=== PATIENT | female | born 1935 | race Hispanic/Latino ===

== ENCOUNTER 2016-11-06 08:57 | Inpatient (IN) | payer MEDICARE, BC ==
[2016-11-06 08:57] VITALS: PULSE 89
[2016-11-06 09:09] VITALS: BMI 17.9
--- NOTE | 2016-11-06 09:23 | ED PDOC ---
Arrival/HPI - General Chief Complaint: Shortness Of Breath Time Seen by Provider: 11/06/16 09:23 Historian: Patient - History of Present Illness Narrative History of Present Illness (Text): 11/06/16 09:10 A 80 year old female, whose past medical history includes cardiac arrhythmia, CHF, hypertension, and pacemaker, presents to the emergency department complaining of shortness of breath that developed overnight. Patient notes an associated productive cough, generalized weakness, and worsening shortness of breath when going up the stairs. She denies any fever, chills, chest pain, abdominal pain, nausea, vomiting, or any other complaints at this time. PMD: Dr. Joshi Cover Operator: Dr. Mabry Time/Duration: Other (8-12 hours) Symptom Onset: Sudden Symptom Course: Unchanged Quality: Other Activities at Onset: Rest Context: Home Past Medical History - Provider Review Nursing Documentation Reviewed: Yes - Infectious Disease Hx of Infectious Diseases: None - Cardiac Hx Cardiac Disorders: Yes Hx Congestive Heart Failure: Yes (06/2015) Hx Hypertension: Yes - Pulmonary Hx Respiratory Disorders: Yes Hx Pneumonia: Yes - Neurological Hx Neurological Disorder: Yes - HEENT Hx HEENT Disorder: Yes Hx Cataracts: Yes - Renal Hx Renal Disorder: No - Endocrine/Metabolic Hx Endocrine Disorders: No - Hematological/Oncological Hx Blood Transfusions: No Hx Blood Transfusion Reaction: No - Integumentary Hx Dermatological Disorder: No - Musculoskeletal/Rheumatological Hx Musculoskeletal Disorders: Yes Hx Back Pain: Yes Hx Degenerative Joint Disease: Yes (BACK SX) Hx Falls: Yes Hx Unsteady Gait: Yes (cane/walker H/O) - Gastrointestinal Hx Gastrointestinal Disorders: No - Genitourinary/Gynecological Hx Genitourinary Disorders: No - Psychiatric Hx Psychophysiologic Disorder: No Hx Substance Use: No - Surgical History Other/Comment: kyphoplasty - Anesthesia Hx Anesthesia Reactions: No Hx Malignant Hyperthermia: No - Suicidal Assessment Feels Threatened In Home Enviroment: No Family/Social History - Physician Review Nursing Documentation Reviewed: Yes Family/Social History: Unknown Family HX Smoking Status: Never Smoked Hx Alcohol Use: Yes (WINE OCCASIONALLY) Hx Substance Use: No Allergies/Home Meds Allergies/Adverse Reactions: Allergies cholecalciferol (vitamin D3) [From Vitamin D3] Allergy (Verified 11/06/16 10:35) SWELLING Home Medications: Home Meds Medication Instructions Recorded Confirmed Amiodarone 200 mg PO DAILY 01/01/15 11/06/16 Carvedilol 3.125 mg PO BID 01/01/15 11/06/16 Furosemide [Lasix] 40 mg PO DAILY 06/30/16 11/06/16 Aspirin [[place] Aspirin] 81 mg PO DAILY 11/06/16 11/06/16 Losartan Potassium 25 mg PO BID 11/06/16 11/06/16 Omeprazole 20 mg PO DAILY 11/06/16 11/06/16 Spironolactone [Aldactone] 25 mg PO DAILY 11/06/16 11/06/16 Physical Exam - Physical Exam Narrative Physical Exam (Text): - Review of Systems Constitutional: Generalized weakness. absent: Weight Change, Fevers Eyes: Normal ENT: Normal Respiratory: Shortness of breath. Cough. Sputum. Cardiovascular: Dyspnea on exertion. absent: Chest pain, Palpitations, Syncope Gastrointestinal: Normal absent: Abdominal pain, Diarrhea, Nausea, Vomiting Genitourinary: Normal. absent: Dysuria, Frequency, Hematuria Musculoskeletal: Normal. absent: Arthralgias, Back Pain, Neck Pain Skin: Normal Neurological: Normal absent: Focal Weakness Endocrine: Normal Hemo/Lymphatic: Normal Psychiatric: Normal - Physical exam Patient appears age appropriate, speaking full sentences without difficulty - Systems Exam Head: Present: Atraumatic, Normocephalic Pupils: Present: PERRL Extraocular Muscles: Present: EOMI Conjunctiva: Present: Normal Mouth: Present: Moist Mucous Membranes Neck: Present: Normal Range of Motion. No: MIDLINE TENDERNESS, Paraspinal Tenderness, JVD Respiratory/Chest: Present: Good Air Exchange. Bi-basilar crackles. No: Respiratory Distress, Accessory Muscle Use, Tachypneic Cardiovascular: Present: Peripheral Pulses Present. No: Murmurs Abdomen: Present: Normal Bowel Sounds, No: Tenderness, Peritoneal Signs, Rebound, Guarding, Distention Back: Present: Normal Inspection. No: Midline Tenderness, Paraspinal Tenderness Upper Extremity: Present: Normal Inspection. No: Cyanosis, Edema Lower Extremity: Present: Normal Inspection. No: Edema Neurological: Present: GCS=15, Speech Normal, cranial nerves II through XII fully intact with no cerebellar abnormality, neuro-sensory fully intact. No focal neurological deficits. Skin: Present: Warm, Dry, Normal Color. No: Rashes Lymphatic: Present: OX3, NI, NC Psychiatric: Present: Alert, Oriented x 3, Normal Insight, Normal Concentration Vital Signs Reviewed: Yes Vital Signs Temp Pulse Resp BP Pulse Ox 11/06/16 14:49 99 H 20 94/57 L 97 11/06/16 12:09 100 H 20 136/84 99 11/06/16 10:58 107 H 74/49 L 11/06/16 10:30 82 16 95/56 L 95 11/06/16 09:09 22 11/06/16 09:02 97.9 F 94 H 22 139/97 H 92 L Temperature: Afebrile Blood Pressure: Hypertensive Pulse: Regular Respiratory Rate: Normal Appearance: Positive for: Well-Appearing, Non-Toxic, Comfortable Pain Distress: None Mental Status: Positive for: Alert and Oriented X 3 Medical Decision Making ED Course and Treatment: 11/06/16 09:10 Impression: A 80 year old female with shortness of breath. On physical examination the patient has bi-basilar crackles, in no resp distress Differential Diagnosis include but are not limited to: CHF vs. pneumonia Plan: -- EKG -- Chest X-ray -- Labs -- Reassess and disposition Progress Notes: EKG: Ordered, reviewed, and independently interpreted the EKG. Rate : 105 BPM Rhythm : slow vtach 11/06/16 10:08 Chest x-ray read by me shows no pneumothorax, no infiltrates, but does show mild vascular congestion with cardiomegaly. 11/06/16 10:[address] Glaser in great detail. EKG sent. He recommends Verapamil 2.5 mg IV injection and Amiodarone 150 IV. 11/06/16 10:[address] Young, accepted pt to telemetry pt and daughter aware of and agree with plan Repeat EKG shows paced rate of 87 - Lab Interpretations Lab Results: 11/06/16 09:09 11/06/16 09:09 Lab Results 11/06/16 09:09: Sodium 138, Potassium 3.5 L, Chloride 101, Carbon Dioxide 27, Anion Gap 14, BUN 28 H, Creatinine 1.4, Est GFR ( Amer) 44, Est GFR (Non- Af Amer) 36, Random Glucose 127 H, Calcium 8.9, Total Bilirubin 1.1, AST 71 H, ALT 66 H, Alkaline Phosphatase 84, Lactate Dehydrogenase 600, Total Creatine Kinase 60, Troponin I 0.04 D, NT-Pro-B Natriuret Pep 36972 H, Total Protein 6.9 , Albumin 3.9, Globulin 3.0, Albumin/Globulin Ratio 1.3 11/06/16 09:09: PT 11.3, INR 1.05, APTT 23.2 L 11/06/16 09:09: WBC 7.4 D, RBC 3.60, Hgb 12.7, Hct 36.4, MCV 101.1, MCH 35.3 H , MCHC 34.9, RDW 15.3 H, Plt Count 222, MPV 10.3, Gran % 83.4 H, Lymph % (Auto) 9.8 L, [place] % (Auto) 5.8, Eos % (Auto) 0.9 L, Baso % (Auto) 0.1, Gran # 6.15, Lymph # 0.7 L, [place] # 0.4, Eos # 0.1, Baso # 0.01 I have reviewed the lab results: Yes - RAD Interpretation Radiology Orders: 11/06/16 09:21 CHEST PORTABLE [RAD] Stat - Medication Orders Current Medication Orders: Amiodarone HCl (Cordarone) 200 mg PO DAILY [facility] Amiodarone HCl (Cordarone) 400 mg PO ONCE ONE Stop: 11/06/16 20:01 Aspirin (Ecotrin) 81 mg PO DAILY [facility] Carvedilol (Coreg) 3.125 mg PO BID [facility] Last Admin: 11/06/16 17:04 Dose: Not Given Non-Admin Reason: BP Parameters Not Met Enoxaparin Sodium (Lovenox) 30 mg SC DAILY [facility] PRN Reason: Protocol Furosemide (Lasix) 20 mg IVP 0800,1400 [facility] Losartan Potassium (Cozaar) 25 mg PO BID [facility] Last Admin: 11/06/16 17:03 Dose: Not Given Non-Admin Reason: BP Parameters Not Met Spironolactone (Aldactone) 25 mg PO DAILY [facility] Discontinued Medications Amiodarone HCl (Cordarone) 400 mg PO STAT STA Stop: 11/06/16 14:51 Aspirin (Aspirin Chewable) 324 mg PO STAT STA Stop: 11/06/16 09:31 Last Admin: 11/06/16 09:52 Dose: 81 mg Furosemide (Lasix) 40 mg IV ONCE ONE Stop: 11/06/16 16:01 Last Admin: 11/06/16 17:03 Dose: Not Given Non-Admin Reason: BP Parameters Not Met Ceftriaxone Sodium (Rocephin 1 Gram Ivpb) 1 gm in 100 mls @ 200 mls/hr IV STAT STA PRN Reason: Protocol Stop: 11/06/16 09:59 Last Admin: 11/06/16 09:51 Dose: 200 mls/hr Azithromycin (Zithromax 500mg In Ns) 500 mg in 250 mls @ 167 mls/hr IVPB STAT STA PRN Reason: Protocol Stop: 11/06/16 10:59 Last Admin: 11/06/16 10:13 Dose: 167 mls/hr Amiodarone HCl/Dextrose (Nexterone 150 Mg In Dextrose 100 Ml (Premix)) 150 mg in 100 mls @ 600 mls/hr IVPB ONCE ONE PRN Reason: Protocol Stop: 11/06/16 10:48 Last Admin: 11/06/16 10:59 Dose: 150 mls/hr Nitroglycerin (Nitrostat Sl Tab) 0.3 mg SL STAT STA Stop: 11/06/16 09:31 Last Admin: 11/06/16 09:52 Dose: 0.3 mg Pneumococcal Polyvalent Vaccine (Pneumovax 23 Vaccine) 0.5 ml IM .ONCE ONE Stop: 11/06/16 16:14 Potassium Chloride (K-Dur 20 Meq Er Tab) 40 meq PO STAT STA Stop: 11/06/16 14:50 Verapamil HCl (Verapamil Inj) 2.5 mg IVP STAT STA Stop: 11/06/16 10:39 Last Admin: 11/06/16 10:58 Dose: 2.5 mg - Scribe Statement The provider has reviewed the documentation as recorded by the Rosalva Delgadillo Provider Scribe Attestation: All medical record entries made by the Fabiolaibbrenda were at my direction and personally dictated by me. I have reviewed the chart and agree that the record accurately reflects my personal performance of the history, physical exam, medical decision making, and the department course for this patient. I have also personally directed, reviewed, and agree with the discharge instructions and disposition. Disposition/Present on Arrival - Present on Arrival Any Indicators Present on Arrival: No History of DVT/PE: No History of Uncontrolled Diabetes: No Urinary Catheter: No History of Decub. Ulcer: No History Surgical Site Infection Following: None - Disposition Have Diagnosis and Disposition been Completed?: Yes Diagnosis: CHF (congestive heart failure) Disposition: HOSPITALIZED Disposition Time: 10:49 Patient Plan: Admission Patient Problems: Current Active Problems Problem Status Onset CHF (congestive heart failure) Chronic Condition: FAIR
[2016-11-06] MEDS ORDERED: Azithromycin 500MG/NS 250ml 500 MG/250 ML BAG IVPB STA (09:30)
[2016-11-06] MEDS ORDERED: cefTRIAXone 1 gm 1 GM/100 ML BAG IV STA (09:30)
--- NOTE | 2016-11-06 09:41 | RAD ---
HISTORY: shortness of breath COMPARISON: 11/02/2016. FINDINGS: LUNGS: There is discoid atelectasis in the right lower lobe. There is mild pulmonary venous congestion. No lobar pneumonia. PLEURA: No significant pleural effusion identified, no pneumothorax apparent. CARDIOVASCULAR: There is severe cardiomegaly. There is stable position of left-sided dual lead transvenous permanent pacing device. OSSEOUS STRUCTURES: Stable. VISUALIZED UPPER ABDOMEN: Normal. OTHER FINDINGS: None. IMPRESSION: No acute findings.
[2016-11-06 10:03] LABS: ADD MANUAL DIFF? NO
[2016-11-06 10:06] LABS: BASO # 0.01 K/mm3 (0.0-2.0); BASO % 0.1 % (0.0-3.0); EOS # 0.1 (0.0-0.7); EOS % 0.9 % (1.5-5.0); GRAN # 6.15 (1.4-6.5); GRAN % 83.4 % (50.0-68.0); HEMATOCRIT 36.4 % (36.0-48.0); LYMPH # 0.7 (1.2-3.4); LYMPH % 9.8 % (22.0-35.0); MEAN CELL VOLUME 101.1 fL (80.0-105.0); MEAN CORPUSCULAR HEMOGLOBIN 35.3 pg (25.0-35.0); MEAN CORPUSCULAR HGB CONC 34.9 g/dl (31.0-37.0); MEAN PLATELET VOLUME 10.3 fl (7.0-11.0); MONO # 0.4 (0.1-0.6); MONO % 5.8 % (1.0-6.0); PLATELET COUNT 222 10^3/uL (120.0-450.0); RED CELL DISTRIBUTION WIDTH 15.3 % (11.5-14.5); WHITE BLOOD COUNT 7.4 10^3/ul (4.5-11.0)
[2016-11-06] MEDS ORDERED: Albuterol-Ipratrop 3 mg / 0.5 (3 ml) UD IH STA (10:08)
[2016-11-06 10:15] LABS: INR 1.05 (0.93-1.08); PARTIAL THROMBOPLASTIN TIME 23.2 Seconds (23.7-30.8)
[2016-11-06 10:18] LABS: ALB/GLOB RATIO 1.3 (1.1-1.8); BILIRUBIN,TOTAL 1.1 mg/dL (0.2-1.3); CALCIUM 8.9 mg/dL (8.4-10.5); POTASSIUM 3.5 mmol/L (3.6-5.0); TOTAL PROTEIN 6.9 g/dL (5.8-8.3)
[2016-11-06 10:29] LABS: TROPONIN I 0.04 ng/mL
[2016-11-06] MEDS ORDERED: Amiodarone 150 mg/D5W 100 ml 150 MG/100 ML BAG IVPB ONE (10:39)
[2016-11-06] MEDS ORDERED: Potassium Chloride 20 mEq ER Tab PO STA (14:49)
--- NOTE | 2016-11-06 15:11 | CARD ---
APPROVED REPORT EKG Measurement Heart [id number] <Conclusion> Electronic ventricular pacemaker: 100 % V. Evaristo, ACatalina Patricio.
--- NOTE | 2016-11-06 15:16 | CARD ---
APPROVED REPORT EKG Measurement Heart [id number] <Conclusion> Electronic pacemaker: 100% AV paced
[2016-11-06] MEDS ORDERED: Pneumococcal 23-Valent Vaccine IM ONE (16:13)
--- NOTE | 2016-11-06 17:51 | CON ---
DATE: 11/06/2016 SERVICE: Cardiology. REASON FOR CONSULTATION: Decompensated congestive heart failure, cardiomyopathy, status post AICD. BRIEF CLINICAL HISTORY: This is an 80-year-old female with past medical history significant for tom schemic cardiomyopathy, status post AICD, status post slow VT, loaded with amiodarone multiple times, is status post cardiac catheterization, nonobstructive coronary artery disease, limited only to diag onal 1, ejection fraction 20%-25% on last admission, came in with complaint of 3 or 4 days ago gettin g progressively shortness of breath. This morning, patient woke up and felt more short of breath, so called the daughter who advised her to come to the Emergency Room. The patient found heart rate was 110. Given IV amiodarone because of known history of slow VT. The patient is fairly stable now, se en in the ER, eating lunch. The daughter at the bedside. Denies any chest pain, but complained of s hortness of breath for the last couple of days, which feels better now. PAST MEDICAL HISTORY: Significant for nonischemic cardiomyopathy, status post AICD from [employer], history of cardiac catheterization, history of multiple times slow VT. Once patient required cardioversion as well. History of wide complex tachycardia, history of slow VT, history of atrial fi brillation with bundle branch block, history of cardiac catheterization on 07/06/2016 that shows nonobs tructive coronary artery disease only limited to diagonal 1, 70%-80%, medical treatment recommended, ejection fraction 20%-25%. Post-procedure, cardiac catheterization was complicated by Angio-Seal cely sing device which caused thrombus formation and later on the patient underwent exploration and remova l of blood clot from the right groin. Previous cardiac workup as follows: The patient had cardiac catheterization 07/06/2016 that showed non obstructive coronary artery disease, limited only to D1, 70%-80% proximal stenosis, less than 2 mm ve ssels, not suitable for PCI, ejection fraction 20%-25%, medical treatment recommended, nonischemic ca rdiomyopathy, history of slow VT, history of most recent echocardiography 06/16/2015 that showed eject ion fraction 15%-20%, normal LV thickness, trace aortic regurgitation, moderate to severe mitral regu rgitation, mild tricuspid regurgitation, RV systolic pressure 39. CURRENT MEDICATIONS: The patient at home was taking carvedilol 3.125, aspirin 81 mg, spironolactone 25, omeprazole 20 mg, losartan 25 mg, Lasix 40 mg daily, amiodarone 200 mg daily. ALLERGIES: CHOLECALCIFEROL AND VITAMIN D3. REVIEW OF SYSTEMS: As per HPI. PHYSICAL EXAMINATION: VITAL SIGNS: Temperature afebrile, heart rate 107, blood pressure 136/84. HEENT: PERRLA. Extraocular muscles intact. NECK: Supple. No carotid bruits. No thyromegaly. CHEST: Clear to auscultation. HEART: S1, S2 regular. ABDOMEN: Soft. EXTREMITIES: Clubbing and cyanosis negative. LABORATORY DATA: Blood workup as follows: WBC is ____, hemoglobin ____, hematocrit 36.4, platelet c ount 222. Chemistry shows sodium 130, potassium 3.5, chloride 101, carbon dioxide ____, anion gap of 14, BUN 28, creatinine 1.4. Troponin 0.04. BNP 11,400. IMPRESSION: History of slow ventricular tachycardia, history of wide complex tachycardia, history of atrial fibrillation, history of automatic implantable cardioverter-defibrillator, history of cardiac catheterization on 07/06/2016, nonobstructive coronary artery disease, limited only to D1, less than 2 mm vessels, decreased left ventricular function, decompensated congestive heart failure, acute on ch ronic systolic dysfunction. RECOMMENDATION: We will load with amiodarone. Will give IV amiodarone of 150 and then 400 mg p.o. t .i.d. for 2 doses and then start 200 mg daily. Continue gentle diuretics. Discussed with the daught er. We will follow with you. Probably keep under observation for 24 hours. If remains stable, will possibly discharge in a day or two. We will follow the lipid profile, TSH, hemoglobin A1c. Thank you, Dr. Young, for providing the opportunity in taking care of this patient. Vidal Glaser MD cc: [id number] TT: 11/06/2016 17:50:21 Confirmation # [id number] Dictation # [id number] yvette
[2016-11-07 06:06] VITALS: O2SAT 94
[2016-11-07 07:12] LABS: ADD MANUAL DIFF? NO
[2016-11-07 07:23] LABS: BASO # 0.02 K/mm3 (0.0-2.0); BASO % 0.2 % (0.0-3.0); EOS # 0.1 (0.0-0.7); EOS % 1.1 % (1.5-5.0); GRAN # 7.71 (1.4-6.5); GRAN % 74.6 % (50.0-68.0); HEMATOCRIT 37.8 % (36.0-48.0); MEAN CELL VOLUME 101.9 fL (80.0-105.0); MEAN CORPUSCULAR HGB CONC 33.3 g/dl (31.0-37.0); MEAN PLATELET VOLUME 9.9 fl (7.0-11.0); MONO # 0.5 (0.1-0.6); MONO % 5.1 % (1.0-6.0); PLATELET COUNT 221 10^3/uL (120.0-450.0); RED CELL DISTRIBUTION WIDTH 15.3 % (11.5-14.5); WHITE BLOOD COUNT 10.3 10^3/ul (4.5-11.0)
[2016-11-07 07:57] LABS: ALB/GLOB RATIO 1.4 (1.1-1.8); CALCIUM 8.9 mg/dL (8.4-10.5); MAGNESIUM 2.4 mg/dL (1.7-2.2); PHOSPHOROUS 3.2 mg/dL (2.5-4.5); TOTAL PROTEIN 6.5 g/dL (5.8-8.3)
[2016-11-07] MEDS: Enoxaparin 30 mg Syringe SC SCH ×2 (09:25→09:38)
--- NOTE | 2016-11-07 10:34 | PN ---
DATE: 11/07/2016 REASON FOR CONSULTATION AND FOLLOWUP: Acute decompensated congestive heart failure, status post AICD , cardiomyopathy. BRIEF CLINICAL HISTORY: An 80-year-old female with past medical history of nonischemic cardiomyopath y, status post AICD, slow VT. Loaded with amiodarone, is stable. Last catheterization revealed nono bstructive coronary artery disease on last admission, ejection fraction 25%. PHYSICAL EXAMINATION: VITAL SIGNS: Temperature afebrile, heart rate 94, blood pressure 99/58. HEENT: PERRLA. Extraocular muscles intact. NECK: Supple. No carotid bruits. No thyromegaly. CHEST: Clear to auscultation. HEART: S1, S2 regular. ABDOMEN: Soft. EXTREMITIES: Clubbing and cyanosis negative. LABORATORY DATA: Blood workup as follows: WBC 10.3, hemoglobin 12.6, hematocrit 37.8, platelet coun t 221. Chemistry shows sodium 137, potassium 4, chloride 101, carbon dioxide 27, anion gap of 13, BU N , creatinine 1.2. BNP 11,500. TSH 0.63. IMPRESSION: Acute decompensated congestive heart failure, acute on chronic secondary to systolic dys function, status post cardiac catheterization, nonobstructive coronary artery disease. Cardiac kaylan terization dated 07/06/2016, nonobstructive coronary artery disease, limited only to diagonal 1, 70%-80 % proximal stenosis, less than 2 mm vessels, not suitable for percutaneous coronary intervention, eje ction fraction 20%-25%. Most recent echo on 06/16/2015 shows ejection fraction 15%-20%, normal left v entricular thickness, trace aortic regurgitation, moderate to severe mitral regurgitation, mild tricu spid regurgitation, right ventricular systolic pressure 39. RECOMMENDATION: We will repeat a chest x-ray, PA and lateral. Will continue AICD interrogation. We will get echo to assess LV function. Will give Lasix 20 mg twice as blood pressures tolerate, increa se amiodarone 200 mg daily. Continue Coreg, continue spironolactone. Discussed with the daughter th at patient possibly will discharge home today. Discussed with Dr. Young. Thank you, Dr. Young, for providing the opportunity in taking care of this patient. Vidal Glaser MD cc:Fortino Young MD 305 TT: 11/07/2016 10:33:54 Confirmation # [id number] Dictation # [id number] rn
[2016-11-07 17:12] VITALS: BP 90/55
[2016-11-07 18:48] VITALS: PULSE 92; RESP 20; TEMP 98.3
--- NOTE | 2016-11-07 20:29 | HP ---
CHIEF COMPLAINT AND HISTORY OF PRESENT ILLNESS: This is an 80-year-old female who has come into the hospital because of shortness of breath. She says her shortness of breath has been getting worse. S he has a past medical history of nonischemic cardiomyopathy. The patient has an AICD in place. She has been on amiodarone. She has an EF of 20% to 25%. She says she is feeling better since yesterday when she was short of breath. She has no complaints of any chest pain, no nausea, no vomiting, no d ysuria, frequency, no nocturia, no headaches. No weakness in the arms or the legs. ALLERGIES: VITAMIN D. HOME MEDICATIONS: Amiodarone, carvedilol, Lasix, losartan, omeprazole, Aldactone. PAST MEDICAL HISTORY: 1. Cardiomyopathy, status post automatic implantable cardioverter-defibrillator. 2. Kyphoplasty. 3. Osteoporosis. 4. Pneumonia. 5. DJD. PAST SURGICAL HISTORY: Cataract surgery. FAMILY HISTORY: Noncontributory. SOCIAL HISTORY: She does not smoke or drink. PHYSICAL EXAMINATION: VITAL SIGNS: Temperature is 98.7, pulse of 104, blood pressure 102/57, respirations 21. GENERAL: Patient lying in bed, flat, and in no apparent distress. HEAD AND NECK EXAM: Atraumatic, normocephalic. Conjunctivae are pink. Throat clear and mouth with moist mucosa. Oropharynx benign. EYES: Extraocular movements are intact. PERRLA. NECK: Supple. No JVD, thyromegaly, or adenopathy. No bruits. HEART: S1 and S2 regular rate and rhythm. No murmurs, rubs, or gallops. LUNGS: Clear to auscultation bilaterally. No wheezing rales or rhonchi appreciated. No retraction s on exam. ABDOMEN: Soft, nontender, nondistended. Bowel sounds are positive in all quadrants. No rebound. No hepatosplenomegaly. EXTREMITIES: No cyanosis, clubbing, or edema. NEURO: No facial asymmetry, tongue is midline, no uvula deviation. Power is 5/5 in upper extremity and 5/5 in lower extremity. Sensation is normal in upper extremity and lower extremity. PSYCH: Awake, alert, oriented x3. No anxiety or depression symptoms. Good insight. Normal affec t. : No CVA tenderness VASCULAR: 2+ pulses in carotid and pedal pulses. SKIN: No erythema or abnormal nodules noted. SPINE: Normal curvature. LYMPHADENOPATHY: No anterior cervical or posterior cervical adenopathy. No inguinal adenopathy. LABORATORY DATA: White count of 7.4, hemoglobin 12.7. Chemistry shows the potassium is 3.5; repeat is 4.0. The creatinine is 1.4, albumin is 3.9 and INR is 1.05. Chest x-ray done shows no infiltrates. EKG done showed electronic pacemaker that is 100% AV paced. ASSESSMENT: 1. Acute congestive heart failure secondary to systolic dysfunction. 2. Osteoporosis. 3. Pacemaker. 4. Dyslipidemia. 5. Hypertension. PLAN: The patient is on Aldactone. She is going to continue with amiodarone. The patient is on los carolyn for hypertension. She is receiving Lasix daily. She is on Lovenox for DVT prophylaxis. She i s on a heart healthy diet. I did speak to Dr. Glaser regarding the case. He is going to do a pacemake r evaluation and if she is cleared, then the patient can be discharged home. I did speak to the carline ent's family. Fortino Young MD cc: [id number] TT: 11/07/2016 20:28:38 nataly
--- NOTE | 2016-11-08 20:36 | PN ---
DATE: 11/08/2016 ADDENDUM: To yesterday's progress note. REASON FOR ADDENDUM: The patient before she left underwent defibrillator evaluation, [employer], that shows no evidence of ventricular tachycardia noted except the patient had in August, but othe rwise no event of arrhythmia noted. No issues, defibrillator did not fire also. Thank you, Dr. Young, for allowing me the opportunity of taking care of the patient. Vidal Glaser MD cc:Fortino Young MD 305 TT: 11/08/2016 20:35:47 Confirmation # [id number] Dictation # [id number] dn
--- NOTE | 2016-11-14 12:27 | CARD ---
APPROVED REPORT EXAM: Two-dimensional and M-mode echocardiogram with Doppler and color Doppler. INDICATION Congestive Heart Failure 2D DIMENSIONS Left Atrium (2D)5.4 (1.6-4.0cm)IVSd1.0 (0.7-1.1cm) LVDd6.5 (3.9-5.9cm)PWd0.9 (0.7-1.1cm) LVDs6.2 (2.5-4.0cm)FS (%) 4.5 % LVEF (%)9.9 (>50%) M-Mode DIMENSIONS Aortic Root2.40 (2.2-3.7cm)Aortic Cusp Exc.1.40 (1.5-2.0cm) Aortic Valve AoV Peak Exypjuij451.0cm/Elizabeth Peak GR.5mmHg Mitral Valve MV E Izsrmoof067.0cm/sMV A Wgxgrkuv68.1cm/sE/A ratio2.3 TDI E/Lateral E'0.0E/Medial E'0.0 Tricuspid Valve TR Peak [id number]/sRAP [id number] Peak Gr.47mmHg [id number] LEFT VENTRICLE The Left Ventricle is severely dilated. There is normal left ventricular wall thickness. The systolic function is severely impaired.EF-10-15% There is severe global hypokinesis of the left ventricle. The left ventricular diastolic function is normal. No left ventricle thrombus noted on this study. There is no ventricular septal defect visualized. There is no left ventricular aneurysm. There is no mass noted in the left ventricle. RIGHT VENTRICLE The right ventricle is mildly dilated. The right ventricle is mildly hypertrophied. The right ventricular systolic function is normal. There is a catheter in the right ventricle. ATRIA The left atrium is severely dilated. The right atrium size is normal. There is a catheter/pacemaker lead seen in the right atrium. The interatrial septum is intact with no evidence for an atrial septal defect. AORTIC VALVE The aortic valve is thickened but opens well. There is trace aortic regurgitation. There is no aortic valvular stenosis. There is no aortic valvular vegetation. MITRAL VALVE The mitral valve is thickened but opens well. Mitral regurgitation is severe. There is no mitral valve stenosis. There is no evidence of mitral valve prolapse. TRICUSPID VALVE The tricuspid valve leaflets are thickened , but open well. There is moderate tricuspid regurgitation.RVSP-54 Mmof Hg. There is no tricuspid valve stenosis. There is no tricuspid valve prolapse or vegetation. PULMONIC VALVE The pulmonic valve is not well visualized. GREAT VESSELS The aortic root is normal in size. The ascending aorta is normal in size. The pulmonary artery is normal. The IVC was not visualized. PERICARDIAL EFFUSION There is no pleural effusion. There is no pericardial effusion. <Conclusion> The Left Ventricle is severely dilated. The systolic function is severely impaired.EF-10-15% There is a catheter in the right ventricle. There is trace aortic regurgitation. Mitral regurgitation is severe. There is moderate tricuspid regurgitation.RVSP-54 Mmof Hg.
--- NOTE | 2016-12-25 09:32 | DS ---
Please see the note dictated on 11/07/2016 for the discharge diagnosis and summary. Fortino Young MD
== END 2016-11-07 18:50 | disposition home or self-care (01) | DRG 293 ==
LOC: ED 08:57 → ERH 10:51 → 2RNO 15:28
PROVIDERS: ADMIT Internal Medicine Nephrology; ATTEND Internal Medicine Nephrology
DX: I11.0 Hypertensive heart disease with heart failure (principal); I50.23 Acute on chronic systolic (congestive) heart failure; I42.9 Cardiomyopathy, unspecified; I25.10 Atherosclerotic heart disease of native coronary artery without angina pectoris; I48.91 Unspecified atrial fibrillation; M81.0 Age-related osteoporosis without current pathological fracture; E78.5 Hyperlipidemia, unspecified; I08.1 Rheumatic disorders of both mitral and tricuspid valves; Z79.82 Long term (current) use of aspirin; Z87.01 Personal history of pneumonia (recurrent); Z95.810 Presence of automatic (implantable) cardiac defibrillator

== ENCOUNTER 2016-11-16 04:02 | Inpatient (IN) | payer MEDICARE, BC ==
[2016-11-16] MEDS ORDERED: Albuterol-Ipratrop 3 mg / 0.5 (3 ml) UD IH STA (04:40)
--- NOTE | 2016-11-16 04:40 | ED PDOC ---
Arrival/HPI - General Chief Complaint: Shortness Of Breath Time Seen by Provider: 11/16/16 04:04 Historian: Patient - History of Present Illness Narrative History of Present Illness (Text): 11/16/16 04:36 Janna Jean is an 80 year old female, whose past medical history includes cardiomopathy s/p AICD, pneumonia, DJD, and kyphoplasty, who presents to the Emergency Room complaining of worsening shortness of breath tonight. Patient also reports associated orthopnea. The patient denies any fever, chills, chest pain, cough, abdominal pain, nausea, vomiting, diarrhea, urinary symptoms, back pain, neck pain, headache, dizziness, or any other complaints. PMD: Dr. Selin Joshi Land Inspector: Dr. Glaser Time/Duration: Other (tonight) Symptom Onset: Gradual Symptom Course: Unchanged Activities at Onset: Rest, Light Context: Home Past Medical History - Provider Review Nursing Documentation Reviewed: Yes - Infectious Disease Hx of Infectious Diseases: None - Cardiac Hx Cardiac Disorders: Yes Hx Congestive Heart Failure: Yes (06/2015) Hx Hypertension: Yes - Pulmonary Hx Respiratory Disorders: Yes Hx Pneumonia: Yes - Neurological Hx Neurological Disorder: Yes - HEENT Hx HEENT Disorder: Yes Hx Cataracts: Yes - Renal Hx Renal Disorder: No - Endocrine/Metabolic Hx Endocrine Disorders: No - Hematological/Oncological Hx Blood Transfusions: No Hx Blood Transfusion Reaction: No - Integumentary Hx Dermatological Disorder: No - Musculoskeletal/Rheumatological Hx Musculoskeletal Disorders: Yes Hx Back Pain: Yes Hx Degenerative Joint Disease: Yes (BACK SX) Hx Falls: Yes Hx Unsteady Gait: Yes (cane/walker H/O) - Gastrointestinal Hx Gastrointestinal Disorders: No - Genitourinary/Gynecological Hx Genitourinary Disorders: No - Psychiatric Hx Psychophysiologic Disorder: No Hx Substance Use: No - Surgical History Other/Comment: kyphoplasty - Anesthesia Hx Anesthesia Reactions: No Hx Malignant Hyperthermia: No - Suicidal Assessment Feels Threatened In Home Enviroment: No Family/Social History - Physician Review Nursing Documentation Reviewed: Yes Family/Social History: Unknown Family HX Smoking Status: Never Smoked Hx Alcohol Use: Yes (WINE OCCASIONALLY) Hx Substance Use: No Allergies/Home Meds Allergies/Adverse Reactions: Allergies cholecalciferol (vitamin D3) [From Vitamin D3] Allergy (Verified 11/06/16 10:35) SWELLING Home Medications: Home Meds Medication Instructions Recorded Confirmed Amiodarone 200 mg PO DAILY 01/01/15 11/16/16 Carvedilol 3.125 mg PO BID 01/01/15 11/16/16 Furosemide [Lasix] 40 mg PO DAILY 06/30/16 11/16/16 Aspirin [Tira Aspirin] 81 mg PO DAILY 11/06/16 11/16/16 Losartan Potassium 25 mg PO BID 11/06/16 11/16/16 Omeprazole 20 mg PO DAILY 11/06/16 11/16/16 Spironolactone [Aldactone] 25 mg PO DAILY 11/06/16 11/16/16 Review of Systems - Physician Review All systems were reviewed & negative as marked: Yes - Review of Systems Constitutional: Normal. absent: Fevers Eyes: Normal ENT: Normal Respiratory: SOB. absent: Cough Cardiovascular: Orthopnea. absent: Chest Pain Gastrointestinal: Normal. absent: Abdominal Pain, Diarrhea, Nausea, Vomiting Genitourinary Female: Normal. absent: Dysuria, Frequency, Hematuria, Urine Output Changes Musculoskeletal: Normal. absent: Back Pain, Neck Pain Skin: Normal. absent: Rash Neurological: Normal. absent: Headache, Dizziness Endocrine: Normal Hemo/Lymphatic: Normal Psychiatric: Normal Physical Exam Vital Signs Reviewed: Yes Vital Signs Temp Pulse Resp BP Pulse Ox 11/16/16 06:56 85 17 92/68 L 97 11/16/16 04:30 20 11/16/16 04:08 97.5 F L 94 H 16 116/71 99 Temperature: Afebrile Blood Pressure: Normal Pulse: Regular Respiratory Rate: Normal Appearance: Positive for: Well-Appearing, Non-Toxic, Comfortable Pain Distress: None Mental Status: Positive for: Alert and Oriented X 3 - Systems Exam Head: Present: Atraumatic, Normocephalic Pupils: Present: PERRL Extroacular Muscles: Present: EOMI Conjunctiva: Present: Normal Mouth: Present: Moist Mucous Membranes Neck: Present: Normal Range of Motion Respiratory/Chest: Present: Rales (Rales bilaterally). No: Respiratory Distress , Accessory Muscle Use Cardiovascular: Present: Regular Rate and Rhythm, Normal S1, S2. No: Murmurs Abdomen: Present: Normal Bowel Sounds. No: Tenderness, Distention, Peritoneal Signs Back: Present: Normal Inspection Upper Extremity: Present: Normal Inspection. No: Cyanosis, Edema Lower Extremity: Present: Normal Inspection. No: Edema Neurological: Present: GCS=15, CN II-XII Intact, Speech Normal Skin: Present: Warm, Dry, Normal Color. No: Rashes Psychiatric: Present: Alert, Oriented x 3, Normal Insight, Normal Concentration Medical Decision Making ED Course and Treatment: 11/16/16 04:37 Impression: 80 year old female c/o shortness of breath and orthopnea. Plan: -- EKG -- CXR -- Labs, cardiac enzymes, BNP -- Duoneb -- Reassess and disposition Prior Visits: Notes and results from previous visits were reviewed. Progress Notes: Reviewed EKG, 100% paced rhythm. 11/16/16 05:32 Reviewed radiology, CXR shows increased pulmonary vascular markings. - Lab Interpretations Lab Results: 11/16/16 04:35 11/16/16 04:35 Lab Results 11/16/16 04:35: WBC 8.4, RBC 3.51, Hgb 12.2, Hct 36.0, MCV 102.6, MCH 34.8, MCHC 33.9, RDW 15.2 H, Plt Count 223, MPV 10.5 11/16/16 04:35: Sodium 135, Potassium 3.7, Chloride 100, Carbon Dioxide 26, Anion Gap 13, BUN 28 H, Creatinine 1.3, Est GFR ( Amer) 48, Est GFR (Non- Af Amer) 39, Random Glucose 116 H, Calcium 8.4, Total Bilirubin 1.0, AST 97 H, ALT 81 H, Alkaline Phosphatase 90, Lactate Dehydrogenase 727 H, Total Creatine Kinase 66, Troponin I 0.03 D, NT-Pro-B Natriuret Pep 78523 H, Total Protein 6.7 , Albumin 3.7, Globulin 3.0, Albumin/Globulin Ratio 1.2 11/16/16 04:35: PT 11.4, INR 1.06, APTT 24.7 I have reviewed the lab results: Yes - RAD Interpretation Radiology Orders: 11/16/16 04:32 CHEST PORTABLE [RAD] Stat Parquet Floor Layer'S Helper: ED Physician - EKG Interpretation Interpreted by ED Physician: Yes Type: 12 lead EKG - Medication Orders Current Medication Orders: Discontinued Medications Albuterol/Ipratropium (Duoneb 3 Mg/0.5 Mg (3 Ml) Ud) 3 ml IH ONCE STA Stop: 11/16/16 04:41 Last Admin: 11/16/16 05:00 Dose: 3 ml - Scribe Statement The provider has reviewed the documentation as recorded by the Rosalva Oneil Provider Attestation: All medical record entries made by the Rosalva were at my direction and personally dictated by me. I have reviewed the chart and agree that the record accurately reflects my personal performance of the history, physical exam, medical decision making, and the department course for this patient. I have also personally directed, reviewed, and agree with the discharge instructions and disposition. Disposition/Present on Arrival - Present on Arrival Any Indicators Present on Arrival: No History of DVT/PE: No History of Uncontrolled Diabetes: No Urinary Catheter: No History of Decub. Ulcer: No History Surgical Site Infection Following: None - Disposition Have Diagnosis and Disposition been Completed?: Yes Diagnosis: CHF (congestive heart failure) Disposition: HOSPITALIZED Disposition Time: 07:19 Patient Plan: Admission Condition: STABLE Discharge Instructions (ExitCare): Heart Failure (ED)
[2016-11-16 05:20] LABS: INR 1.06 (0.93-1.08); MEAN CELL VOLUME 102.6 fL (80.0-105.0); MEAN CORPUSCULAR HEMOGLOBIN 34.8 pg (25.0-35.0); MEAN CORPUSCULAR HGB CONC 33.9 g/dl (31.0-37.0); MEAN PLATELET VOLUME 10.5 fl (7.0-11.0); PARTIAL THROMBOPLASTIN TIME 24.7 Seconds (23.7-30.8); RED CELL DISTRIBUTION WIDTH 15.2 % (11.5-14.5); WHITE BLOOD COUNT 8.4 10^3/ul (4.5-11.0)
[2016-11-16 05:22] LABS: ALB/GLOB RATIO 1.2 (1.1-1.8); CALCIUM 8.4 mg/dL (8.4-10.5); POTASSIUM 3.7 mmol/L (3.6-5.0); TOTAL PROTEIN 6.7 g/dL (5.8-8.3)
[2016-11-16 05:33] LABS: TROPONIN I 0.03 ng/mL
--- NOTE | 2016-11-16 08:45 | RAD ---
HISTORY: sob COMPARISON: 11/06/2016 FINDINGS: LUNGS: No active pulmonary disease. PLEURA: No significant pleural effusion identified, no pneumothorax apparent. CARDIOVASCULAR: Moderate cardiomegaly OSSEOUS STRUCTURES: No significant abnormalities. VISUALIZED UPPER ABDOMEN: Normal. OTHER FINDINGS: Dual lead pacemaker IMPRESSION: No active disease.
[2016-11-16] MEDS: Enoxaparin 40 mg Syringe SC SCH (10:28)
[2016-11-16] MEDS: Pantoprazole 40 mg EC Tab PO SCH (10:31)
[2016-11-16 13:09] LABS: URINE BILIRUBIN NEGATIVE (NEGATIVE); URINE BLOOD NEGATIVE (NEGATIVE); URINE GLUCOSE (UA) NEGATIVE (NEGATIVE); URINE KETONE NEGATIVE (NEGATIVE); URINE LEUKOCYTE ESTERASE NEGATIVE Leu/uL (NEGATIVE); URINE PROTEIN TRACE mg/dL (<30 mg/dL); URINE UROBILINOGEN 0.2 E.U./dL (<1 E.U./dL)
[2016-11-16 13:11] LABS: URINE APPEARANCE CLEAR (CLEAR); URINE COLOR YELLOW (YELLOW)
[2016-11-16 13:21] LABS: URINE RBC NEGATIVE /hpf (0-2)
--- NOTE | 2016-11-16 15:37 | CP.PCM.HP ---
<Phi Freire - Last Filed: 11/16/16 15:22> History of Present Illness - History of Present Illness History of Present Illness: This is an 80 y/o female with hx systolic HR, cardiomyopathy s/p defibrillator placement, osteoporosis presenting with complaints of shortness of breath. Patient was recently treated here for similar complaints. States she developed worsening dyspnea and presented to the ED. She is compliant with all medications. She denies fever, chills or illness. Last echo reveals EF 9.9%. Patient functional status is limited. She is able to ambulate in her home but is limited beyond that. Patient does not use oxygen at home. Denies chest pain, abdominal pain, fever, chills, sick contacts. PMH: systolic HF, cardiomyopathy, osteoporosis PSH: kyphoplasty, defibrillator placement Fhx: non-contributory Social hx: denies tobacco or alcohol use. Allergies: Vitamin D Present on Admission - Present on Admission Any Indicators Present on Admission: No Review of Systems - Constitutional Constitutional: absent: Chills, Fever - EENT Eyes: absent: Blurred Vision, Change in Vision Nose/Mouth/Throat: absent: Sore Throat - Respiratory Respiratory: Cough, Dyspnea, Dyspnea on Exertion. absent: Hemoptysis, Wheezing - Gastrointestinal Gastrointestinal: absent: Abdominal Pain, Diarrhea, Hematemesis, Hematochezia, Melena, Nausea, Vomiting - Genitourinary Genitourinary: absent: Dysuria, Hematuria - Musculoskeletal Musculoskeletal: absent: Atrophy, Back Pain - Psychiatric Psychiatric: absent: Anxiety, Depression - Endocrine Endocrine: absent: Fatigue, Palpitations Past Patient History - Infectious Disease Hx of Infectious Diseases: None - Past Social History Smoking Status: Never Smoked - CARDIAC Hx Cardiac Disorders: Yes Hx Congestive Heart Failure: Yes (06/2015) Hx Hypertension: Yes - PULMONARY Hx Respiratory Disorders: Yes Hx Pneumonia: Yes - NEUROLOGICAL Hx Neurological Disorder: Yes - HEENT Hx HEENT Problems: Yes Hx Cataracts: Yes - RENAL Hx Chronic Kidney Disease: No - ENDOCRINE/METABOLIC Hx Endocrine Disorders: No - HEMATOLOGICAL/ONCOLOGICAL Hx Blood Transfusions: No Hx Blood Transfusion Reaction: No - INTEGUMENTARY Hx Dermatological Problems: No - MUSCULOSKELETAL/RHEUMATOLOGICAL Hx Musculoskeletal Disorders: Yes Hx Back Pain: Yes Hx Degenerative Joint Disease: Yes (BACK SX) Hx Falls: Yes Hx Unsteady Gait: Yes (cane/walker H/O) - GASTROINTESTINAL Hx Gastrointestinal Disorders: No - GENITOURINARY/GYNECOLOGICAL Hx Genitourinary Disorders: No - PSYCHIATRIC Hx Psychophysiologic Disorder: No Hx Substance Use: No - SURGICAL HISTORY Other/Comment: kyphoplasty - ANESTHESIA Hx Anesthesia Reactions: No Hx Malignant Hyperthermia: No Meds Allergies/Adverse Reactions: Allergies Allergy/AdvReac Type Severity Reaction Status Date / Time cholecalciferol (vitamin D3) Allergy SWELLING Verified 11/16/16 14:33 [From Vitamin D3] Physical Exam - Constitutional Appears: Non-toxic, No Acute Distress - Head Exam Head Exam: ATRAUMATIC, NORMOCEPHALIC - Eye Exam Eye Exam: EOMI, PERRL - ENT Exam ENT Exam: Mucous Membranes Dry - Neck Exam Neck exam: Positive for: Full Rom, Normal Inspection - Respiratory Exam Respiratory Exam: Rales (b/l bases ). absent: Rhonchi, Wheezes - Cardiovascular Exam Cardiovascular Exam: REGULAR RHYTHM, +S1, +S2 - GI/Abdominal Exam GI & Abdominal Exam: Normal Bowel Sounds, Soft. absent: Tenderness - Extremities Exam Extremities exam: Positive for: normal inspection. Negative for: calf tenderness, pedal edema - Neurological Exam Neurological exam: Alert, CN II-XII Intact, Oriented x3 - Psychiatric Exam Psychiatric exam: Normal Affect, Normal Mood - Skin Skin Exam: Dry, Warm Results - Vital Signs Recent Vital Signs: Last Vital Signs Temp 98.5 F 11/16/16 12:00 Pulse 16 L 11/16/16 12:00 Resp 20 11/16/16 08:50 BP 99/46 L 11/16/16 12:00 Pulse Ox 95 11/16/16 08:50 - Labs Result Diagrams: 11/16/16 04:35 11/16/16 04:35 Labs: Laboratory Results - last 24 hr 11/16/16 11/16/16 11/16/16 12:00 12:00 13:00 Troponin I 0.03 TSH 3rd Generation 0.52 Urine Color Yellow Urine Appearance Clear Urine pH 6.0 Ur Specific [place] 1.010 Urine Protein Trace H Urine Glucose (UA) Negative Urine Ketones Negative Urine Blood Negative Urine Nitrate Negative Urine Bilirubin Negative Urine Urobilinogen 0.2 Ur Leukocyte Esterase Negative Urine RBC Negative Urine WBC 1 - 3 Assessment & Plan - Assessment and Plan (Free Text) Assessment: 80 y/o female presenting with acute CHF exacerbation. Patient has a hx of sever systolic HF with EF 9.9%. Functional status is greatly limited. Patient's volume status is stable. There is no significant pulmonary edema. EKG and troponins indicate no acute ischemia. CHF exacerbation - continue home medications includin ARB, aspirin, coreg, aldactone - cardiology consulted - patient may require home oxygen - will evaluate ambulatory oxygen sat - nasal cannula PRn - heart healthy low Na diet - monitor fluid status ppx - Protonix 40 PO daily - scd's, lovenox 40 sc daily <Trice MAZARIEGOS,Vidal - Last Filed: 11/17/16 07:36> Results - Vital Signs Recent Vital Signs: Last Vital Signs Temp 98.1 F 11/17/16 06:00 Pulse 98 H 11/17/16 06:00 Resp 20 11/17/16 06:00 BP 95/68 L 11/17/16 06:00 Pulse Ox 97 11/17/16 06:00 - Labs Result Diagrams: 11/17/16 05:45 11/17/16 05:45 Labs: Laboratory Results - last 24 hr 11/16/16 11/16/16 11/16/16 12:00 12:00 13:00 WBC RBC Hgb Hct MCV MCH MCHC RDW Plt Count MPV Gran % Lymph % (Auto) [place] % (Auto) Eos % (Auto) Baso % (Auto) Gran # Lymph # [place] # Eos # Baso # PT INR APTT Sodium Potassium Chloride Carbon Dioxide Anion Gap BUN Creatinine Est GFR ( Amer) Est GFR (Non-Af Amer) Random Glucose Calcium Total Bilirubin AST ALT Alkaline Phosphatase Troponin I 0.03 Total Protein Albumin Globulin Albumin/Globulin Ratio TSH 3rd Generation 0.52 Urine Color Yellow Urine Appearance Clear Urine pH 6.0 Ur Specific [place] 1.010 Urine Protein Trace H Urine Glucose (UA) Negative Urine Ketones Negative Urine Blood Negative Urine Nitrate Negative Urine Bilirubin Negative Urine Urobilinogen 0.2 Ur Leukocyte Esterase Negative Urine RBC Negative Urine WBC 1 - 3 11/16/16 11/17/16 11/17/16 21:15 05:45 05:45 WBC 8.7 RBC 3.46 L Hgb 12.0 Hct 35.3 L MCV 102.0 MCH 34.7 MCHC 34.0 RDW 15.3 H Plt Count 210 MPV 10.1 Gran % 68.6 H Lymph % (Auto) 20.6 L [place] % (Auto) 7.9 H Eos % (Auto) 2.4 Baso % (Auto) 0.5 Gran # 5.94 Lymph # 1.8 [place] # 0.7 H Eos # 0.2 Baso # 0.04 PT 11.2 INR 1.04 APTT 26.1 Sodium Potassium Chloride Carbon Dioxide Anion Gap BUN Creatinine Est GFR ( Amer) Est GFR (Non-Af Amer) Random Glucose Calcium Total Bilirubin AST ALT Alkaline Phosphatase Troponin I 0.04 D Total Protein Albumin Globulin Albumin/Globulin Ratio TSH 3rd Generation Urine Color Urine Appearance Urine pH Ur Specific [place] Urine Protein Urine Glucose (UA) Urine Ketones Urine Blood Urine Nitrate Urine Bilirubin Urine Urobilinogen Ur Leukocyte Esterase Urine RBC Urine WBC 11/17/16 05:45 WBC RBC Hgb Hct MCV MCH MCHC RDW Plt Count MPV Gran % Lymph % (Auto) [place] % (Auto) Eos % (Auto) Baso % (Auto) Gran # Lymph # [place] # Eos # Baso # PT INR APTT Sodium 136 Potassium 3.8 Chloride 102 Carbon Dioxide 26 Anion Gap 12 BUN 22 H Creatinine 1.2 Est GFR ( Amer) 52 Est GFR (Non-Af Amer) 43 Random Glucose 88 Calcium 8.3 L Total Bilirubin 1.3 AST 59 H ALT 67 H Alkaline Phosphatase 74 Troponin I Total Protein 6.0 Albumin 3.3 Globulin 2.7 Albumin/Globulin Ratio 1.2 TSH 3rd Generation Urine Color Urine Appearance Urine pH Ur Specific [place] Urine Protein Urine Glucose (UA) Urine Ketones Urine Blood Urine Nitrate Urine Bilirubin Urine Urobilinogen Ur Leukocyte Esterase Urine RBC Urine WBC Attending/Attestation - Attestation I have personally seen and examined this patient.: Yes I have fully participated in the care of the patient.: Yes I have reviewed all pertinent clinical information: Yes Notes (Text): 11/17/16 07:33 Patient was seen and examined with faculty i on call medical assistant .Agreed with resident assessment and plan. 80 Yrs old Female with PMH of Non ischemic CMP, CHF with systolic dysfunction EF 10-15%.VT, sp AICD and on amiodrone therapy is admitted with worsening dyspnea due to acute on chronic CHF exacerbation, will start on IV lasix, will continue coreg/ARB and aldactone.We will get cardiology consult. Mild elevated transaminase arelikely due to congested liver due to CHF, patient is also on Amiodrone, has higher number previously, we will monitor with diuresisis. Patient is DNI , but not DNR. Management plan was discussed in detail with patient Education was provided.
[2016-11-16 15:51] VITALS: BMI 12.3
[2016-11-16] MEDS ORDERED: Pneumococcal 23-Valent Vaccine IM ONE (15:51)
--- NOTE | 2016-11-16 23:10 | CARD ---
APPROVED REPORT EKG Measurement Heart [id number] <Conclusion> AV sequential or dual chamber electronic pacemaker
[2016-11-17 06:25] LABS: ADD MANUAL DIFF? NO
[2016-11-17 06:35] LABS: BASO # 0.04 K/mm3 (0.0-2.0); BASO % 0.5 % (0.0-3.0); EOS # 0.2 (0.0-0.7); EOS % 2.4 % (1.5-5.0); GRAN # 5.94 (1.4-6.5); GRAN % 68.6 % (50.0-68.0); HEMATOCRIT 35.3 % (36.0-48.0); LYMPH # 1.8 (1.2-3.4); LYMPH % 20.6 % (22.0-35.0); MEAN CORPUSCULAR HEMOGLOBIN 34.7 pg (25.0-35.0); MEAN PLATELET VOLUME 10.1 fl (7.0-11.0); MONO # 0.7 (0.1-0.6); MONO % 7.9 % (1.0-6.0); PLATELET COUNT 210 10^3/uL (120.0-450.0); RED CELL DISTRIBUTION WIDTH 15.3 % (11.5-14.5); WHITE BLOOD COUNT 8.7 10^3/ul (4.5-11.0)
[2016-11-17 06:49] LABS: ALB/GLOB RATIO 1.2 (1.1-1.8); BILIRUBIN,TOTAL 1.3 mg/dL (0.2-1.3); CALCIUM 8.3 mg/dL (8.4-10.5); INR 1.04 (0.93-1.08); PARTIAL THROMBOPLASTIN TIME 26.1 Seconds (23.7-30.8); POTASSIUM 3.8 mmol/L (3.6-5.0)
[2016-11-17] MEDS: Pantoprazole 40 mg EC Tab PO SCH (09:55)
[2016-11-17] MEDS: Digoxin 125 mcg (0.125 mg) Tab PO SCH (09:55)
[2016-11-17] MEDS: Enoxaparin 40 mg Syringe SC SCH (09:55)
[2016-11-17] MEDS: Milrinone 20mg/100ml D5W 100 ML IV PRN (10:04)
--- NOTE | 2016-11-17 11:44 | CON ---
DATE: 11/17/2016 SERVICE: Cardiology. CONSULTING PHYSICIAN: Dr. Vidal Glaser. REASON FOR CONSULTATION: Acute decompensated congestive heart failure, history of cardiomyopathy, st atus post AICD. BRIEF CLINICAL HISTORY: An 80-year-old female with a past medical history of nonischemic cardiomyopa thy, status post defibrillator, recently discharged from the hospital, came back with a complaint of worsening shortness of breath, history of severe nonischemic cardiomyopathy. Denies any chest pain. PAST MEDICAL HISTORY: Significant for nonischemic cardiomyopathy, status post AICD [employer] , history of cardiac catheterization, history of multiple times slow VT, once required cardioversion. History of wide complex tachycardia in the previous admission, history of atrial fibrillation with bundle branch block, history of cardiac catheterization. Previous cardiac workup as follows: History of cardiac catheterization 07/06/2016 that shows nonobst ructive coronary artery disease, limited only D1, 70-80% stenosis, proximal stenosis, less than 2 mm vessel, not suitable for PCI. Medical treatment recommended. Ejection fraction 20-25%. Medical ursula atment recommended. History of slow VT. History of last echo 06/16/2015 showed ejection fraction 15 -20%, normal wall thickness, moderate to severe mitral regurgitation, mild tricuspid regurgitation, R V systolic pressure 39. History of repeat echo on previous admission 11/07/2016 that showed ejection f raction 10-15%, pacemaker noted in right ventricle, trace aortic regurgitation, severe mitral regurgi tation, moderate tricuspid regurg, RV systolic pressure of 54. CURRENT MEDICATIONS: The patient is at home taking spironolactone 25, omeprazole, losartan 25 mg brandi ly, Lasix 40 mg daily, carvedilol 3.125, aspirin 81 mg, amiodarone 200 mg daily. REVIEW OF SYSTEMS: As per HPI. PHYSICAL EXAMINATION: VITAL SIGNS: Temperature afebrile, heart rate 82, blood pressure 95/86. HEENT: PERRLA. Extraocular muscles intact. NECK: Supple. No carotid bruits. No thyromegaly. CHEST: Clear to auscultation. HEART: S1, S2 regular. ABDOMEN: Soft. EXTREMITIES: Clubbing and cyanosis negative. LABORATORY DATA: Blood workup as follows: WBC 8.7, hemoglobin 12, hematocrit 35.3, platelet count 2 10. Chemistry shows sodium 130, potassium 3.0, chloride 102, carbon dioxide 26, anion gap of 12, BUN 22, creatinine 1.2. IMPRESSION: Decompensated congestive heart failure, acute on chronic secondary to systolic dysfuncti on. BNP 16,800. Severe mitral regurgitation, moderate tricuspid regurgitation, pulmonary hypertensi on, nonischemic cardiomyopathy. Recent echo ejection fraction 10-15%. Most recent echo 10-15%, trac e aortic regurgitation. RECOMMENDATION: Continue Lasix, continue spironolactone. We will add low dose Primacor as the blood pressure is tolerated. Continue IV Lasix. Continue Coreg. We will add digoxin. We will follow you. Thank you, Dr. Brink, for providing us the opportunity in taking care of the patient. The patient mary l get the benefit from 48 hours of Primacor, prevent rehospitalization and then assess the need for t he long-term Primacor after 48 hours if the patient can tolerate. We will also add low dose of digox in. The patient is on amiodarone as well. Creatinine clearance 52 mL. Vidal Glaser MD cc: [id number] TT: 11/17/2016 11:43:32 Confirmation # [id number] Dictation # [id number]
--- NOTE | 2016-11-17 13:19 | IP.NPCORE ---
Heart Failure Core Measure - Heart Failure Left Ventricular Function to be assessed after discharge: Yes GLORIA Inhibitor Prescribed: Yes Beta-Jayden Prescribed: Carvedilol Angiotensin II Receptor Jayden Prescribed: Yes AnticoagulationTherapy for Atrial Fibrillation/Atrialflutter: No Contraindication/Reason for not providing: n/a Aldosterone Antagonist Prescribed: Yes Hydralazine Nitrate Prescribed: No Contraindication/Reason for not providing: hypotension Contraindication/Reason for not providing: to assess with ef 10- 20% documented - Follow up Will be discharged to: Home Follow Up Date (must be within 7 days from discharge): 11/24/16 Follow Up Time: 09:00 (recommeded )
--- NOTE | 2016-11-17 15:43 | CP.PCM.PN ---
Subjective - Date & Time of Evaluation Date of Evaluation: 11/17/16 Time of Evaluation: 10:00 - Subjective Subjective: Patient seen at bedside. She states shortness of breath is improved. She denies any chest pain, abdominal pain, LE swellin, n/v/d. Patient started on Primacor drip. She is comfortable and without complaints. Objective - Vital Signs/Intake and Output Vital Signs (last 24 hours): Temp Pulse Resp BP Pulse Ox 98.2 F 94 H 20 92/60 L 97 11/17/16 12:00 11/17/16 14:00 11/17/16 12:00 11/17/16 12:00 11/17/16 09:30 Intake and Output: 11/17/16 11/17/16 06:59 18:59 Intake Total 120 600 Output Total 400 400 Balance -280 200 - Medications Medications: Current Medications Amiodarone HCl (Cordarone) 200 mg PO DAILY [facility] Last Admin: 11/17/16 09:55 Dose: 200 mg Aspirin (Ecotrin) 81 mg PO DAILY [facility] Last Admin: 11/17/16 09:55 Dose: 81 mg Carvedilol (Coreg) 3.125 mg PO BID [facility] Last Admin: 11/17/16 10:00 Dose: Not Given Digoxin (Lanoxin) 0.125 mg PO MWF [facility] Last Admin: 11/17/16 09:55 Dose: 0.125 mg Enoxaparin Sodium (Lovenox) 40 mg SC DAILY [facility] PRN Reason: Protocol Last Admin: 11/17/16 09:55 Dose: 40 mg Furosemide (Lasix) 20 mg IVP BID [facility] Last Admin: 11/17/16 09:45 Dose: Not Given Milrinone Lactate/Dextrose (Primacor 20mg/100ml D5w) 100 mls @ 2.139 mls/hr IV .Q24H PRN; Protocol; 0.2 MCG/KG/MIN PRN Reason: TITRATE PER MD ORDER Last Admin: 11/17/16 10:04 Dose: 0.2 mcg/kg/min, 2.139 mls/hr Losartan Potassium (Cozaar) 25 mg PO BID [facility] Last Admin: 11/17/16 09:45 Dose: Not Given Pantoprazole Sodium (Protonix Ec Tab) 40 mg PO DAILY [facility] Last Admin: 11/17/16 09:55 Dose: 40 mg Spironolactone (Aldactone) 25 mg PO DAILY [facility] Last Admin: 11/17/16 09:45 Dose: Not Given - Labs Labs: 11/17/16 05:45 11/17/16 05:45 PT 11.2 Seconds (9.9-11.8) 11/17/16 05:45 INR 1.04 (0.93-1.08) 11/17/16 05:45 APTT 26.1 Seconds (23.7-30.8) 11/17/16 05:45 - Constitutional Appears: Non-toxic, No Acute Distress - Head Exam Head Exam: ATRAUMATIC, NORMOCEPHALIC - Eye Exam Eye Exam: EOMI, PERRL - ENT Exam ENT Exam: Mucous Membranes Moist - Neck Exam Neck Exam: Full ROM, Normal Inspection - Respiratory Exam Respiratory Exam: Clear to Ausculation Bilateral. absent: Rales, Rhonchi, Wheezes - Cardiovascular Exam Cardiovascular Exam: REGULAR RHYTHM - GI/Abdominal Exam GI & Abdominal Exam: Soft, Normal Bowel Sounds. absent: Tenderness - Extremities Exam Extremities Exam: absent: Calf Tenderness, Pedal Edema - Neurological Exam Neurological Exam: Alert, Awake, Oriented x3 - Psychiatric Exam Psychiatric exam: Normal Affect - Skin Skin Exam: Dry, Warm Assessment and Plan - Assessment and Plan (Free Text) Assessment: 80 y/o female presenting with acute CHF exacerbation. Patient has a hx of sever systolic HF with EF 9.9%. Functional status is greatly limited. Patient's volume status is stable. There is no significant pulmonary edema. EKG and troponins indicate no acute ischemia. Patient started on Milrinone today. Will continue to monitor status. Following cardiology recs CHF exacerbation - milrinone gtt - started on digoxin - continue home medications includin ARB, aspirin, coreg, aldactone - patient may require home oxygen - will evaluate ambulatory oxygen sat - nasal cannula PRn - heart healthy low Na diet - monitor fluid status ppx - Protonix 40 PO daily - scd's, lovenox 40 sc daily
[2016-11-18 07:49] LABS: ADD MANUAL DIFF? NO
[2016-11-18 08:01] LABS: BASO # 0.03 K/mm3 (0.0-2.0); BASO % 0.3 % (0.0-3.0); EOS # 0.2 (0.0-0.7); EOS % 2.4 % (1.5-5.0); GRAN # 6.87 (1.4-6.5); GRAN % 74.5 % (50.0-68.0); HEMATOCRIT 34.8 % (36.0-48.0); LYMPH # 1.6 (1.2-3.4); LYMPH % 17.2 % (22.0-35.0); MEAN CELL VOLUME 102.7 fL (80.0-105.0); MEAN CORPUSCULAR HEMOGLOBIN 34.5 pg (25.0-35.0); MEAN CORPUSCULAR HGB CONC 33.6 g/dl (31.0-37.0); MEAN PLATELET VOLUME 10.2 fl (7.0-11.0); MONO # 0.5 (0.1-0.6); MONO % 5.6 % (1.0-6.0); PLATELET COUNT 205 10^3/uL (120.0-450.0); RED CELL DISTRIBUTION WIDTH 14.8 % (11.5-14.5); WHITE BLOOD COUNT 9.2 10^3/ul (4.5-11.0)
[2016-11-18 08:02] LABS: INR 1.02 (0.93-1.08)
[2016-11-18 08:12] LABS: ALB/GLOB RATIO 1.2 (1.1-1.8); BILIRUBIN,TOTAL 0.8 mg/dL (0.2-1.3); CALCIUM 8.2 mg/dL (8.4-10.5); MAGNESIUM 2.3 mg/dL (1.7-2.2); PHOSPHOROUS 3.4 mg/dL (2.5-4.5); POTASSIUM 3.9 mmol/L (3.6-5.0); TOTAL PROTEIN 5.7 g/dL (5.8-8.3)
[2016-11-18] MEDS: Pantoprazole 40 mg EC Tab PO SCH (10:21)
[2016-11-18] MEDS: Enoxaparin 40 mg Syringe SC SCH (10:24)
--- NOTE | 2016-11-18 10:56 | CP.PCM.PN ---
Subjective - Date & Time of Evaluation Date of Evaluation: 11/18/16 Time of Evaluation: 10:53 - Subjective Subjective: Patient seen and examined. Milrinone infusing. Patient is not complaining of shortness of breath, chest pain or cough. She is comfortable on nasal oxygen and with adequate oxygen saturation. Patient has no other complaints at this time. Objective - Vital Signs/Intake and Output Vital Signs (last 24 hours): Temp Pulse Resp BP Pulse Ox 98.4 F 102 H 20 93/53 L 95 11/18/16 05:47 11/18/16 10:22 11/18/16 05:47 11/18/16 10:22 11/18/16 05:47 Intake and Output: 11/18/16 11/18/16 06:59 18:59 Intake Total 447 Output Total 700 Balance -253 - Medications Medications: Current Medications Amiodarone HCl (Cordarone) 200 mg PO DAILY [facility] Last Admin: 11/18/16 10:22 Dose: 200 mg Aspirin (Ecotrin) 81 mg PO DAILY [facility] Last Admin: 11/18/16 10:21 Dose: 81 mg Carvedilol (Coreg) 3.125 mg PO BID [facility] Last Admin: 11/18/16 10:23 Dose: 3.125 mg Digoxin (Lanoxin) 0.125 mg PO MWF [facility] Last Admin: 11/17/16 09:55 Dose: 0.125 mg Enoxaparin Sodium (Lovenox) 40 mg SC DAILY [facility] PRN Reason: Protocol Last Admin: 11/18/16 10:24 Dose: Not Given Furosemide (Lasix) 20 mg IVP BID [facility] Last Admin: 11/18/16 10:22 Dose: 20 mg Milrinone Lactate/Dextrose (Primacor 20mg/100ml D5w) 100 mls @ 2.139 mls/hr IV .Q24H PRN; Protocol; 0.2 MCG/KG/MIN PRN Reason: TITRATE PER MD ORDER Last Admin: 11/17/16 10:04 Dose: 0.2 mcg/kg/min, 2.139 mls/hr Losartan Potassium (Cozaar) 25 mg PO BID [facility] Last Admin: 11/18/16 10:36 Dose: Not Given Pantoprazole Sodium (Protonix Ec Tab) 40 mg PO DAILY [facility] Last Admin: 11/18/16 10:21 Dose: 40 mg Spironolactone (Aldactone) 25 mg PO DAILY [facility] Last Admin: 11/17/16 09:45 Dose: Not Given - Labs Labs: 11/18/16 07:46 11/18/16 07:46 PT 11.0 Seconds (9.9-11.8) 11/18/16 07:46 INR 1.02 (0.93-1.08) 11/18/16 07:46 APTT 26.1 Seconds (23.7-30.8) 11/17/16 05:45 - Constitutional Appears: Non-toxic, No Acute Distress - Head Exam Head Exam: ATRAUMATIC, NORMOCEPHALIC - Eye Exam Eye Exam: EOMI, PERRL - ENT Exam ENT Exam: Mucous Membranes Moist - Neck Exam Neck Exam: Full ROM. absent: Lymphadenopathy, Meningismus - Respiratory Exam Respiratory Exam: Clear to Ausculation Bilateral. absent: Rhonchi, Wheezes - Cardiovascular Exam Cardiovascular Exam: REGULAR RHYTHM, +S1, +S2 - GI/Abdominal Exam GI & Abdominal Exam: Soft, Normal Bowel Sounds. absent: Tenderness - Neurological Exam Neurological Exam: Alert, Awake, Oriented x3 - Psychiatric Exam Psychiatric exam: Normal Affect, Normal Mood - Skin Skin Exam: Dry, Warm Assessment and Plan - Assessment and Plan (Free Text) Assessment: 80 y/o female presenting with acute CHF exacerbation. Patient has a hx of sever systolic HF with EF 9.9%. Functional status is greatly limited. Patient's volume status is stable. There is no significant pulmonary edema. EKG and troponins indicate no acute ischemia. Patient started on Milrinone on 11/17. Will continue to monitor status. Following cardiology recs CHF exacerbation - milrinone gtt - started on digoxin - continue home medications includin ARB, aspirin, coreg, aldactone - patient may require home oxygen - will evaluate ambulatory oxygen sat - nasal cannula PRn - heart healthy low Na diet - monitor fluid status ppx - Protonix 40 PO daily - scd's, lovenox 40 sc daily Dipso: patient is stable, receiving Milrinone infusion daily. Will d/c home once Milrinone course is complete per cardiology.
--- NOTE | 2016-11-18 12:44 | PN ---
DATE: 11/18/2016 SUBJECTIVE: The patient is an 80-year-old, seen and examined, lying in bed, seems to be very comfort able. Denies any nausea, vomiting, no diarrhea, no chest pain, no shortness of breath. The patient was admitted for acute on chronic CHF exacerbation since she has ejection fraction of 10-15%, seems t o be very comfortable. PHYSICAL EXAMINATION: VITAL SIGNS: She is afebrile, pulse 56, respirations 20, blood pressure 93/53. LUNGS: Bilateral fair airflow, no rhonchi or crackle. HEART: S1, S2 audible. ABDOMEN: Soft, nontender, no rebound, no guarding. NEUROLOGIC: She is awake and alert, communicative, moves all extremities. EXTREMITIES: Bilateral legs, no edema. LABORATORY EXAMINATION: WBC 9.2, hemoglobin 11.7, hematocrit 34.8, platelet 205. PT 11.0, INR 1.02. Chemistry: Sodium 136, potassium 3.9, chloride 102, CO2 of 26, BUN 25, creatinine 1.1, blood sugar of 82, magnesium 2.3. LFTs: ALT 43. ASSESSMENT: 1. Acute on chronic systolic congestive heart failure. 2. Electrolyte imbalance. 3. Cardiomyopathy, status post defibrillator placement. 4. History of osteoporosis. 5. Status post kyphoplasty. PLAN: At this point, the patient is on diuretics. She is on spironolactone. She is being maintaine d on amiodarone and carvedilol. She is on digoxin. She is on Lovenox and milrinone drip. We will f ollow up her electrolytes, CBC, CMP and magnesium level in a.m. Mayra Pal MD cc: [phone] TT: 11/18/2016 12:43:39 Confirmation # [id number] Dictation # [id number] tn
--- NOTE | 2016-11-18 15:04 | PN ---
DATE: 11/18/[address] Glaser. SUBJECTIVE: The patient is on nasal O2. Her shortness of breath has improved. She denies any leg s welling. No retrosternal chest pain. PHYSICAL EXAMINATION: VITAL SIGNS: Blood pressure 98/60, heart rate 92, temperature 98.5, respirations 16. HEENT: Pale conjunctivae. CHEST: Diminished breath sounds over the bases. HEART: S1, S2 regular. ABDOMEN: Soft. EXTREMITIES: No pedal edema, significant muscle wasting. EKG revealed AV sequential electronic pacemaker. Chest x-ray revealed cardiomegaly with mild CHF and dual chamber pacemaker. LABORATORIES: Hemoglobin and hematocrit 11.7 and 34.8, white count and platelet count are within nor mal limits. Today's SMA-7 is within normal limits except for BUN of 25. ProBNP on admission was 16, 800. Echocardiographic study performed earlier this month revealed ejection fraction in the range of 10%-15%. ASSESSMENT: 1. Decompensated congestive heart failure. 2. Status post implantable cardioverter-defibrillator placement with dual chamber pacemaker. 3. Mild anemia. RECOMMENDATIONS: Continue Aldactone at 25 mg once a day, amiodarone 200 mg daily, Coreg 3.125 mg twi ce a day, Cozaar 25 mg twice a day, aspirin 81 mg once a day, Lanoxin 0.25 mg Sunday, Sunday and , Lasix at 40 mg intravenously twice a day, Lovenox at 40 mg subcutaneous once a day. Continue milrinone infusion. Obtain serum digoxin level. Kevin Mendenhall MD cc: [phone] TT: 11/18/2016 15:03:25 Confirmation # [id number] Dictation # [id number] yvette
[2016-11-18] MEDS: Milrinone 20mg/100ml D5W 100 ML IV PRN (17:38)
[2016-11-19 07:49] LABS: ADD MANUAL DIFF? NO
[2016-11-19 08:28] LABS: INR 1.03 (0.93-1.08)
[2016-11-19 08:39] LABS: BASO # 0.03 K/mm3 (0.0-2.0); BASO % 0.4 % (0.0-3.0); EOS # 0.3 (0.0-0.7); EOS % 4.1 % (1.5-5.0); GRAN # 5.37 (1.4-6.5); HEMATOCRIT 35.4 % (36.0-48.0); LYMPH # 1.8 (1.2-3.4); LYMPH % 22.5 % (22.0-35.0); MEAN CELL VOLUME 101.7 fL (80.0-105.0); MEAN CORPUSCULAR HEMOGLOBIN 33.9 pg (25.0-35.0); MEAN CORPUSCULAR HGB CONC 33.3 g/dl (31.0-37.0); MEAN PLATELET VOLUME 10.1 fl (7.0-11.0); MONO # 0.6 (0.1-0.6); PLATELET COUNT 229 10^3/uL (120.0-450.0); RED CELL DISTRIBUTION WIDTH 14.6 % (11.5-14.5); WHITE BLOOD COUNT 8.1 10^3/ul (4.5-11.0)
[2016-11-19 09:08] LABS: ALB/GLOB RATIO 1.2 (1.1-1.8); BILIRUBIN,TOTAL 0.5 mg/dL (0.2-1.3); CALCIUM 8.4 mg/dL (8.4-10.5); MAGNESIUM 2.2 mg/dL (1.7-2.2); PHOSPHOROUS 3.6 mg/dL (2.5-4.5); POTASSIUM 3.7 mmol/L (3.6-5.0)
[2016-11-19] MEDS: Pantoprazole 40 mg EC Tab PO SCH (09:34)
[2016-11-19] MEDS: Enoxaparin 40 mg Syringe SC SCH ×2 (09:35→09:42)
--- NOTE | 2016-11-19 13:02 | PN ---
DATE: 11/19/2016 SUBJECTIVE: The patient is an 80-year-old seen and examined, doing well, sitting in chair, anxious t o go home. She states her IV is hurting. Otherwise, her shortness of breath is much better. PHYSICAL EXAMINATION: VITAL SIGNS: She is afebrile, pulse 89, respirations 18, blood pressure /60. LUNGS: Bilateral fair airflow, no rhonchi or crackle. HEART: S1, S2 audible. ABDOMEN: Soft, nontender, no rebound, no guarding. NEUROLOGIC: She is awake and alert, communicative. EXTREMITIES: Bilateral legs: No edema. LABORATORY EXAMINATION: WBC is 8.1, hemoglobin 11.8, hematocrit 35.4, platelet of 229. Chemistry: Sodium 136, potassium 3.7, chloride 100, CO2 28, BUN 23, creatinine 1.1, blood sugar of 82. ASSESSMENT: 1. Acute on chronic congestive heart failure with systolic dysfunction. 2. Status post defibrillator placement. 3. Electrolyte imbalance. 4. Cardiomyopathy. 5. Degenerative disk disease. PLAN: Currently, the patient is on milrinone drip. Continue milrinone drip. She is currently on Al dactone, amiodarone, carvedilol, losartan, aspirin, digoxin and Lasix. milrinone drip is discon tinued and discharge plan can be made. Mayra Pal MD cc: [phone] TT: 11/19/2016 13:01:03 Confirmation # [id number] Dictation # [id number] ln
--- NOTE | 2016-11-19 13:56 | PN ---
DATE: 11/19/2016 The patient's shortness of breath has improved. No cough today. PHYSICAL EXAMINATION: VITAL SIGNS: Blood pressure 100/58, heart rate 83, temperature 98.6, respirations 19. HEENT: Normocephalic. CHEST: Minimal rhonchi. HEART: S1, S2 regular. EXTREMITIES: No edema. LABORATORIES: Hemoglobin and hematocrit 11.8 and 35.4. White count and platelet count are within no rmal limits. Today's SMA-7 is within normal limits except for BUN of 23. ASSESSMENT: 1. Decompensated congestive heart failure. 2. Mild anemia. 3. Status post implantable cardioverter-defibrillator and dual chamber pacemaker. RECOMMENDATIONS: Continue Aldactone at 25 mg daily; amiodarone 200 mg once a day; Coreg 3.125 mg tw ice a day; Cozaar 25 mg twice a day; aspirin 81 mg once a day; Lanoxin 0.25 mg Sunday, Sunday and Sunday; Lasix 20 mg intravenous twice a day; Lovenox at 40 mg subcutaneous once a day. Restart milri none infusion. Digoxin level today is obtained, and it is less than 0.4. Kevin Mendenhall MD cc: [phone] TT: 11/19/2016 13:55:39 Confirmation # [id number] Dictation # [id number] josr
[2016-11-20 08:01] LABS: ADD MANUAL DIFF? NO
[2016-11-20 08:03] LABS: BASO # 0.02 K/mm3 (0.0-2.0); BASO % 0.2 % (0.0-3.0); EOS # 0.3 (0.0-0.7); EOS % 3.5 % (1.5-5.0); GRAN # 5.64 (1.4-6.5); GRAN % 67.4 % (50.0-68.0); HEMATOCRIT 35.4 % (36.0-48.0); LYMPH # 1.8 (1.2-3.4); MEAN CELL VOLUME 101.4 fL (80.0-105.0); MEAN CORPUSCULAR HEMOGLOBIN 34.1 pg (25.0-35.0); MEAN CORPUSCULAR HGB CONC 33.6 g/dl (31.0-37.0); MONO # 0.6 (0.1-0.6); MONO % 6.9 % (1.0-6.0); PLATELET COUNT 232 10^3/uL (120.0-450.0); RED CELL DISTRIBUTION WIDTH 14.5 % (11.5-14.5); WHITE BLOOD COUNT 8.4 10^3/ul (4.5-11.0)
[2016-11-20 08:11] LABS: INR 1.02 (0.93-1.08)
[2016-11-20 08:15] LABS: ALB/GLOB RATIO 1.3 (1.1-1.8); BILIRUBIN,TOTAL 0.7 mg/dL (0.2-1.3); CALCIUM 8.7 mg/dL (8.4-10.5); POTASSIUM 3.9 mmol/L (3.6-5.0); TOTAL PROTEIN 5.9 g/dL (5.8-8.3)
[2016-11-20] MEDS: Pantoprazole 40 mg EC Tab PO SCH (09:34)
[2016-11-20] MEDS: Enoxaparin 40 mg Syringe SC SCH (09:34)
[2016-11-20] MEDS: Digoxin 125 mcg (0.125 mg) Tab PO SCH (09:35)
[2016-11-20 09:38] VITALS: PULSE 89
--- NOTE | 2016-11-20 11:14 | PN ---
DATE: 11/20/2016 REASON FOR CONSULTATION AND FOLLOWUP: Decompensated congestive heart failure, acute on chronic systo lic dysfunction. BRIEF CLINICAL HISTORY: This is an 80-year-old female with a past medical history significant for co ngestive heart failure, cardiomyopathy, nonischemic, status post defibrillator, recently discharged f [facility], came back again with decompensated congestive heart failure. The patient started on IV Primacor. The patient significantly improved. Denies any chest pain, shortness of breath. The pat ient is also on digoxin Sunday, Sunday, Sunday. PHYSICAL EXAMINATION: VITAL SIGNS: Temperature afebrile, heart rate 89, blood pressure 103/60. HEENT: PERRLA. Extraocular muscles intact. NECK: Supple. No carotid bruits. No thyromegaly. CHEST: Clear to auscultation. HEART: S1, S2 regular. ABDOMEN: Soft. EXTREMITIES: Clubbing and cyanosis negative. BLOOD WORKUP: As follows: WBC 8.4, hemoglobin 11.9, hematocrit 35.4, platelet count 232. Chemistry shows sodium 137, potassium 3.7, chloride 100, carbon dioxide 28, anion gap of 13, BUN 23, creatinin e 1.1. IMPRESSION: Decompensated congestive heart failure, acute on chronic, secondary to systolic dysfunct ion, cardiomyopathy, severely decreased left ventricular function, nonischemic cardiomyopathy, status post cardiac catheterization, mild anemia, status post automatic implantable cardioverter-defibrilla tor, mild anemia, severe mitral regurgitation, moderate tricuspid regurgitation, pulmonary hypertensi on, nonischemic cardiomyopathy. Recent echocardiogram shows ejection fraction 10-15%, trace aortic r egurgitation. RECOMMENDATION: Continue spironolactone. Continue Primacor if the blood pressures tolerate it. If the blood pressure drops down, we will discontinue it. Continue amiodarone, continue Coreg, continue losartan, continue aspirin; continue digoxin Sunday, Sunday, Sunday. We will change Lasix to p.o . and ambulate. If remains stable, possible discharge in the a.m. Will follow with you. Thank you, Dr. Brink, for providing this opportunity in taking care of the patient. Son spoke to me i n reference of patient's long-term on Primacor. If the patient's blood pressure is difficult to jamie ge then we will not send on the Primacor. We will see the patient's condition. Will follow with you . Vidal Glaser MD cc: [phone] TT: 11/20/2016 11:14:10 Confirmation # [id number] Dictation # [id number] mn
--- NOTE | 2016-11-20 12:19 | PN ---
DATE: 11/20/2016 SUBJECTIVE: The patient is an 80-year-old, seen and examined lying in bed. Seems to be comfortable. No chest pain, no shortness of breath. PHYSICAL EXAMINATION: VITAL SIGNS: She is afebrile, pulse 60, respirations 20, blood pressure 87/55. LUNGS: Bilateral fair airflow, no rhonchi or crackle. HEART: S1, S2 audible. ABDOMEN: Soft and nontender. No rebound, no guarding. NEUROLOGIC: She is awake and alert, able to communicate. LABORATORY: WBC 8.4, hemoglobin 11.9, hematocrit 35.4, platelet 232. Chemistry: Sodium 137, potass ium 3.9, chloride 100, CO2 28, BUN 23, creatinine 1.1, blood sugar of 80. ASSESSMENT AND PLAN: Acute on chronic congestive heart failure exacerbation with systolic dysfunction, cardiomyopathy, sta tus post automatic implantable cardioverter-defibrillator placement, chronic anemia, mitral regurgita tion, tricuspid regurgitation, nonischemic cardiomyopathy, pulmonary hypertension. PLAN OF CARE: Currently, the patient is on Primacor. She is getting diuretics. Dr. Glaser's input no sb and appreciated. She is receiving Coreg, amiodarone and digoxin. Request for TCU evaluation. R henry for physical therapy. Follow up electrolytes in the a.m. Mayra Pal MD cc: [phone] TT: 11/20/2016 12:18:51 Confirmation # [id number] Dictation # [id number] mn
[2016-11-20] MEDS: Milrinone 20mg/100ml D5W 100 ML IV PRN (18:02)
[2016-11-21 06:18] VITALS: O2SAT 99
[2016-11-21] MEDS ORDERED: Potassium Chloride 20 mEq ER Tab PO ONE (09:40)
[2016-11-21] MEDS: Enoxaparin 40 mg Syringe SC SCH (10:54)
[2016-11-21] MEDS: Pantoprazole 40 mg EC Tab PO SCH (10:56)
--- NOTE | 2016-11-21 11:19 | PN ---
DATE: 11/21/2016 REASON FOR CONSULTATION AND FOLLOWUP: Decompensated congestive heart failure, acute on chronic systo lic dysfunction. BRIEF CLINICAL HISTORY: This is an 80-year-old female with a past medical history significant for co ngestive heart failure, cardiomyopathy, nonischemic, status post defibrillator, recently discharged f rom the hospital, came back again with decompensated congestive heart failure. The patient started o n IV Primacor, IV Lasix, significantly improved. Digoxin started Sunday, Sunday, Sunday, accordin g to the renal function and age. The patient is off oxygen, slept well last night. Primacor was dis continued this morning today at 7:00; feels okay. Denies any chest pain, shortness of breath, any pa lpitation. PHYSICAL EXAMINATION: VITAL SIGNS: Temperature afebrile, heart rate 81, blood pressure 105/57. HEENT: PERRLA. Extraocular muscles intact. NECK: Supple. No carotid bruits. No thyromegaly. CHEST: Clear to auscultation. HEART: S1, S2 regular. ABDOMEN: Soft. EXTREMITIES: Clubbing and cyanosis negative. LABORATORY DATA: Blood workup as follows: WBC 8.5, hemoglobin 11.9, hematocrit 35.4, platelet count 232. Chemistry shows sodium 137, potassium 3.9, chloride 100, carbon dioxide 28, anion gap of 13, B UN 23, creatinine 1.1. IMPRESSION: Decompensated congestive heart failure, acute on chronic secondary to systolic dysfuncti on, ejection fraction significantly reduced, last echo 10-15% ejection fraction, trace aortic regurgi tation, history of nonischemic cardiomyopathy, status post cardiac catheterization 2-3 months ago, no nischemic only limited to diagonal, status post automatic implantable cardioverter-defibrillator and history of ventricular tachycardia. RECOMMENDATION: Continue spironolactone. Primacor discontinued this morning at 7:00. Continue Lasi x,. I am going to continue digoxin Sunday, Sunday, Sunday. Continue Coreg. Ambulate. If remain s stable, possible discharge home. We will discuss with the family. We will discuss with Dr. Alex winchester Discussed with the patient, continue losartan and we will change the Lasix to p.o. We will follo w with you. Thank you, Dr. Pal, for providing the opportunity in taking care of the patient. Upon discharge, the patient will be followed with Dr. Joshi. We will continue DVT prophylaxis. We will supplement potassium. Vidal Glaser MD cc:Mayra Pal MD [phone] TT: 11/21/2016 11:19:23 Confirmation # [id number] Dictation # [id number] tn
[2016-11-21 11:50] VITALS: RESP 18; TEMP 98
[2016-11-21 17:14] VITALS: BP 156/98; PULSE 91
--- NOTE | 2016-11-22 06:31 | DS ---
The patient is an 80-year-old, seen and examined, ambulating with physical therapist with no shortnes s of breath and no tachycardia. PHYSICAL EXAMINATION: VITAL SIGNS: She is afebrile, pulse 81, respirations 19, blood pressure 110/56. LUNGS: Bilateral fair airflow, no rhonchi or crackle. HEART: S1, S2 audible. ABDOMEN: Soft, nontender, no rebound, no guarding. NEUROLOGIC: The patient is awake and alert, communicative. LABORATORY EXAM: WBC is 8.4, hemoglobin 11.9, hematocrit 35.4, platelet of 232. Chemistry, shows no new chemistry available today. ASSESSMENT: 1. Severe cardiomyopathy with ejection fraction of 10%-15%. 2. Status post defibrillator placement. 3. Left ventricular systolic dysfunction. 4. Chronic anemia. 5. Mitral regurgitation. 6. Moderate tricuspid regurgitation. 7. Pulmonary hypertension. PLAN: The patient is clinically stable. She can be discharged home today. She will be sent home on Aldactone, amiodarone 200 daily, Coreg 3.125 b.i.d., losartan 25 b.i.d., aspirin 81 daily. She is o n potassium. She is on digoxin. She will be sent home on Lasix 40 b.i.d. She will follow up with h er PMD Dr. Joshi. Mayra Pal MD cc: [phone] TT: 11/22/2016 06:30:52 mi
--- NOTE | 2016-11-23 15:55 | CP.PCM.DIS ---
Provider - Provider Date of Admission: 11/16/16 07:08 Attending physician: Mayra Pal MD Primary care physician: Mohit Joshi MD Consults: Cardiology - Dr. Ames Time Spent in preparation of Discharge (in minutes): 35 Diagnosis - Discharge Diagnosis (1) CHF (congestive heart failure) Status: Chronic Hospital Course - Lab Results Lab Results: Most Recent Lab Values WBC 8.4 10^3/ul (4.5-11.0) 11/20/16 07:40 RBC 3.49 10^6/uL (3.5-6.1) L 11/20/16 07:40 Hgb 11.9 gm/dL (12.0-16.0) L 11/20/16 07:40 Hct 35.4 % (36.0-48.0) L 11/20/16 07:40 MCV 101.4 fL (80.0-105.0) 11/20/16 07:40 MCH 34.1 pg (25.0-35.0) 11/20/16 07:40 MCHC 33.6 g/dl (31.0-37.0) 11/20/16 07:40 RDW 14.5 % (11.5-14.5) 11/20/16 07:40 Plt Count 232 10^3/uL (120.0-450.0) 11/20/16 07:40 MPV 10.0 fl (7.0-11.0) 11/20/16 07:40 Gran % 67.4 % (50.0-68.0) 11/20/16 07:40 Lymph % (Auto) 22.0 % (22.0-35.0) 11/20/16 07:40 [place] % (Auto) 6.9 % (1.0-6.0) H 11/20/16 07:40 Eos % (Auto) 3.5 % (1.5-5.0) 11/20/16 07:40 Baso % (Auto) 0.2 % (0.0-3.0) 11/20/16 07:40 Gran # 5.64 (1.4-6.5) 11/20/16 07:40 Lymph # 1.8 (1.2-3.4) 11/20/16 07:40 [place] # 0.6 (0.1-0.6) 11/20/16 07:40 Eos # 0.3 (0.0-0.7) 11/20/16 07:40 Baso # 0.02 K/mm3 (0.0-2.0) 11/20/16 07:40 PT 11.0 Seconds (9.9-11.8) 11/20/16 07:40 INR 1.02 (0.93-1.08) 11/20/16 07:40 APTT 26.1 Seconds (23.7-30.8) 11/17/16 05:45 Sodium 137 mmol/L (132-148) 11/20/16 07:40 Potassium 3.9 mmol/L (3.6-5.0) 11/20/16 07:40 Chloride 100 mmol/L (95-110) 11/20/16 07:40 Carbon Dioxide 28 mmol/L (21-33) 11/20/16 07:40 Anion Gap 13 (10-20) 11/20/16 07:40 BUN 23 mg/dL (7-21) H 11/20/16 07:40 Creatinine 1.1 mg/dL (0.5-1.4) 11/20/16 07:40 Est GFR ( Amer) 58 11/20/16 07:40 Est GFR (Non-Af Amer) 48 11/20/16 07:40 Random Glucose 80 mg/dL (70-110) 11/20/16 07:40 Calcium 8.7 mg/dL (8.4-10.5) 11/20/16 07:40 Phosphorus 3.6 mg/dL (2.5-4.5) 11/19/16 07:45 Magnesium 2.2 mg/dL (1.7-2.2) 11/19/16 07:45 Total Bilirubin 0.7 mg/dL (0.2-1.3) 11/20/16 07:40 AST 45 U/L (15-39) H 11/20/16 07:40 ALT 43 U/L (7-56) 11/20/16 07:40 Alkaline Phosphatase 66 U/L (38-133) 11/20/16 07:40 Lactate Dehydrogenase 727 U/L (333-699) H 11/16/16 04:35 Total Creatine Kinase 66 U/L (35-230) 11/16/16 04:35 Troponin I 0.04 ng/mL D 11/16/16 21:15 NT-Pro-B Natriuret Pep 88356 pg/mL (0-450) H 11/16/16 04:35 Total Protein 5.9 g/dL (5.8-8.3) 11/20/16 07:40 Albumin 3.3 g/dL (3.0-4.8) 11/20/16 07:40 Globulin 2.6 gm/dL 11/20/16 07:40 Albumin/Globulin Ratio 1.3 (1.1-1.8) 11/20/16 07:40 TSH 3rd Generation 0.52 mIU/mL (0.46-4.68) 11/16/16 12:00 Urine Color Yellow (YELLOW) 11/16/16 13:00 Urine Appearance Clear (CLEAR) 11/16/16 13:00 Urine pH 6.0 (4.7-8.0) 11/16/16 13:00 Ur Specific [place] 1.010 (1.005-1.035) 11/16/16 13:00 Urine Protein Trace mg/dL (<30 mg/dL) H 11/16/16 13:00 Urine Glucose (UA) Negative mg/dL (NEGATIVE) 11/16/16 13:00 Urine Ketones Negative mg/dL (NEGATIVE) 11/16/16 13:00 Urine Blood Negative (NEGATIVE) 11/16/16 13:00 Urine Nitrate Negative (NEGATIVE) 11/16/16 13:00 Urine Bilirubin Negative (NEGATIVE) 11/16/16 13:00 Urine Urobilinogen 0.2 E.U./dL (<1 E.U./dL) 11/16/16 13:00 Ur Leukocyte Esterase Negative [place]/uL (NEGATIVE) 11/16/16 13:00 Urine RBC Negative /hpf (0-2) 11/16/16 13:00 Urine WBC 1 - 3 /hpf (0-6) 11/16/16 13:00 Digoxin < 0.4 ng/mL (0.8-2.0) L 11/19/16 07:45 Discharge Exam - Head Exam Head Exam: ATRAUMATIC, NORMOCEPHALIC Discharge Plan - Discharge Medications Prescriptions: Carvedilol [Coreg] 3.125 mg PO BID #60 tab Digoxin [Lanoxin] 0.125 mg PO MWF #30 tab Furosemide [Lasix] 40 mg PO 0800,1400 #60 tab - Follow Up Plan Condition: STABLE Disposition: HOME/ ROUTINE Instructions: Heart Failure (DC), Chest Pain (DC), Pacemaker (DC), Pacemaker ( GEN), Pulmonary Edema (DC) Referrals: Mohit Joshi MD [Primary Care Provider] -
== END 2016-11-21 20:32 | disposition home or self-care (01) | DRG 292 ==
LOC: ED 04:02 → ERH 07:08 → 2RSO 09:19
PROVIDERS: ADMIT Internal Medicine Nephrology; ATTEND Internal Medicine
DX: I50.23 Acute on chronic systolic (congestive) heart failure (principal); I42.9 Cardiomyopathy, unspecified; I47.2 Ventricular tachycardia; E87.8 Other disorders of electrolyte and fluid balance, not elsewhere classified; I27.2 Other secondary pulmonary hypertension; I08.3 Combined rheumatic disorders of mitral, aortic and tricuspid valves; D64.9 Anemia, unspecified; M81.0 Age-related osteoporosis without current pathological fracture; I48.91 Unspecified atrial fibrillation; M51.9 Unspecified thoracic, thoracolumbar and lumbosacral intervertebral disc disorder; Z95.810 Presence of automatic (implantable) cardiac defibrillator

== ENCOUNTER 2018-05-30 14:06 | Emergency (ER) | payer MEDICARE, BC ==
[2018-05-30 14:07] VITALS: PULSE 89; BMI 12.3
--- NOTE | 2018-05-30 14:18 | ED PDOC ---
Arrival/HPI - General Historian: Patient - History of Present Illness Narrative History of Present Illness (Text): 05/30/18 14:17 systolic HF (Last EF 9.9%), cardiomyopathy s/p defibrillator placement, osteoporosis presents to ED s/p tripping into a door/wall today, impacting her Left Shoulder. Pt had immediate 10/10 pain after the fall and is unable to move it. Pt denies any LOC, CP, SOB, NV, Weakness, Blood in stools, blood in urine 05/30/18 15:07 Time/Duration: 1-3 hours Symptom Onset: Sudden Severity Level: 10 Context: Walking, Tripped <Mehdi Florez - Last Filed: 05/30/18 17:21> <Daren Peoples - Last Filed: 05/30/18 19:58> - General Chief Complaint: Trauma Time Seen by Provider: 05/30/18 14:14 Past Medical History - Provider Review Nursing Documentation Reviewed: Yes - Infectious Disease Hx of Infectious Diseases: None - Cardiac Hx Cardiac Disorders: Yes Hx Congestive Heart Failure: Yes (06/2015) Hx Hypertension: Yes - Pulmonary Hx Respiratory Disorders: Yes Hx Pneumonia: Yes - Neurological Hx Neurological Disorder: Yes - HEENT Hx HEENT Disorder: Yes Hx Cataracts: Yes - Renal Hx Renal Disorder: No - Endocrine/Metabolic Hx Endocrine Disorders: No - Hematological/Oncological Hx Blood Transfusions: No Hx Blood Transfusion Reaction: No - Integumentary Hx Dermatological Disorder: No - Musculoskeletal/Rheumatological Hx Musculoskeletal Disorders: Yes Hx Back Pain: Yes Hx Degenerative Joint Disease: Yes (BACK SX) Hx Falls: Yes Hx Unsteady Gait: Yes (cane/walker H/O) - Gastrointestinal Hx Gastrointestinal Disorders: No - Genitourinary/Gynecological Hx Genitourinary Disorders: No - Psychiatric Hx Psychophysiologic Disorder: No Hx Substance Use: No - Surgical History Other/Comment: kyphoplasty - Anesthesia Hx Anesthesia Reactions: No Hx Malignant Hyperthermia: No - Suicidal Assessment Feels Threatened In Home Enviroment: No <Mehdi Florez - Last Filed: 05/30/18 17:21> Family/Social History - Physician Review Nursing Documentation Reviewed: Yes Family/Social History: Unknown Family HX Smoking Status: Never Smoked Hx Alcohol Use: Yes (WINE OCCASIONALLY) Hx Substance Use: No <Mehdi Florez - Last Filed: 05/30/18 17:21> Allergies/Home Meds <Mehdi Florez - Last Filed: 05/30/18 17:21> <Daren Peoples - Last Filed: 05/30/18 19:58> Allergies/Adverse Reactions: Allergies cholecalciferol (vitamin D3) [From Vitamin D3] Allergy (Verified 11/16/16 14:33) SWELLING Home Medications: Home Meds Medication Instructions Recorded Confirmed Furosemide [Lasix] 40 mg PO BID 06/30/16 11/21/16 Aspirin [Dewitt Aspirin EC] 81 mg PO DAILY 11/06/16 11/16/16 Losartan Potassium 25 mg PO BID 11/06/16 11/16/16 Omeprazole 20 mg PO DAILY 11/06/16 11/16/16 Spironolactone [Aldactone] 25 mg PO DAILY 11/06/16 11/16/16 Amiodarone Hydrochloride 200 mg PO DAILY 11/16/16 11/16/16 [Cordarone] Carvedilol [Coreg] 3.125 mg PO DAILY 11/16/16 11/16/16 Review of Systems - Review of Systems Constitutional: absent: Fatigue, Fevers Eyes: absent: Vision Changes Respiratory: absent: SOB, Cough Cardiovascular: absent: Chest Pain, Syncope Gastrointestinal: absent: Abdominal Pain Musculoskeletal: Arthralgias (L CHYNA), Joint Swelling (L CHYNA) Neurological: absent: Headache, Dizziness <Mehdi Florez - Last Filed: 05/30/18 17:21> Physical Exam Blood Pressure: Normal Pulse: Regular Respiratory Rate: Normal Appearance: Positive for: Well-Appearing Pain Distress: Severe Mental Status: Positive for: Alert and Oriented X 3 - Systems Exam Head: Present: Atraumatic, Normocephalic Extroacular Muscles: No: EOMI Mouth: Present: Moist Mucous Membranes Pharnyx: No: ERYTHEMA Neck: Present: Normal Range of Motion Respiratory/Chest: Present: Clear to Auscultation. No: Wheezes, Rales Cardiovascular: Present: Regular Rate and Rhythm, Normal S1, S2. No: Murmurs Upper Extremity: Present: NORMAL PULSES, Tenderness (L sholder palpation at subacromion, Pain w/ passive flexion, ext, abduction, and external rotation), Swelling (L shoulder appear assymetrical, swelling noted inferior anterior aspect. Pt keeps arm adducted and internal rotated close to chest. ). No: Temperature Abnormalties Neurological: Present: CN II-XII Intact, Speech Normal Skin: Present: Dry, Normal Color Psychiatric: Present: Alert, Oriented x 3, Normal Affect <Mehdi Florez - Last Filed: 05/30/18 17:21> Vital Signs Temp Pulse Resp BP Pulse Ox 05/30/18 14:26 98.6 F 80 16 90/55 L 99 <Daren Peoples - Last Filed: 05/30/18 19:58> Medical Decision Making ED Course and Treatment: 05/30/18 15:28 #Left Shoulder Trauma IVP morphine 2mg stat L shoulder Xray 05/30/18 17:10 X ray shows fractue of L humeral neck Pt unable to carry out activities of daily living at current status Admit to Dr Kae Mcqueen <Mehdi Florez - Last Filed: 05/30/18 17:21> ED Course and Treatment: 05/30/18 16:18 82 year old female presents to the ED complaining of left shoulder pain s/p mechanical fall. In agreement with resident note which contains more details about the patient. Patient seen and evaluated with resident. Came up with plan and treatment together. 05/30/18 19:57 AMA: ADMIT NEEDED The patient refuses admission and wishes to leave the Emergency Department against my medical advice. Patient was told that admission to the hospital is necessary and a full explanation of the reasons why was given, and understood by patient. The risks of leaving were explained and include worsening of condition, and permanent disability and from an undiagnosed or untreated condition. The patient accepts these risks, and is in my judgement is competent and capable of understanding the clinical situation and my explanation of the risks of leaving. Patient was given the opportunity to ask questions and change mind. The patient was instructed regarding the best care for the present symptoms, and to follow up with as soon as possible, or return to the Emergency Department at any time for continuing care. Patient/family wish to leave the ED because the patient's orthopedic surgeon is not affiliated at this hospital. They state they will take patient to another hospital. - RAD Interpretation Radiology Orders: 05/30/18 15:01 SHOULDER LEFT [RAD] Stat 05/30/18 17:04 HUMERUS LT FALL PROTOCOL [RAD] Stat - Medication Orders Current Medication Orders: Discontinued Medications Morphine Sulfate (Morphine) 2 mg IVP STAT STA Stop: 05/30/18 15:00 Last Admin: 05/30/18 15:39 Dose: 2 mg MAR Pain Assessment Document 05/30/18 15:39 ([facility]30[facility]18 15[id number] Pain Reassessment Is this a pain reassessment? Yes Sleep Is patient sleeping during reassessment? No Presence of Pain Presence of Pain Yes Pain Scale Used Protocol: PSCALES Pain Scale Used Numeric Description Intensity of Pain at present 6 IVP Administration Document 05/30/18 15:39 (Rec: 05/30/18 15:40 [id number] Charges for Administration # of IVP Administrations 1 Ondansetron HCl (Zofran Inj) 4 mg IVP STAT STA Stop: 05/30/18 16:10 <Daren Peoples - Last Filed: 05/30/18 19:58> - PA / HOTEL ASSISTANT GENERAL MANAGER / Resident Statement MD/ has reviewed & agrees with the documentation as recorded. MD/ has examined the patient and agrees with the treatment plan. - Scribe Statement The provider has reviewed the documentation as recorded by the Fabiolaibbrenda Watson. All medical record entries made by the Fabiolaibbrenda were at my direction and personally dictated by me. I have reviewed the chart and agree that the record accurately reflects my personal performance of the history, physical exam, medical decision making, and the department course for this patient. I have also personally directed, reviewed, and agree with the discharge instructions and disposition. <Daren Peoples - Last Filed: 05/30/18 19:58> Disposition/Present on Arrival - Present on Arrival Any Indicators Present on Arrival: No History of DVT/PE: No History of Uncontrolled Diabetes: No Urinary Catheter: No History Surgical Site Infection Following: None - Disposition Have Diagnosis and Disposition been Completed?: Yes Disposition Time: 17:14 Patient Plan: Admission <Mehdi Florez - Last Filed: 05/30/18 17:21> - Disposition Disposition Time: 19:58 Patient Plan: Discharge <Daren Peoples - Last Filed: 05/30/18 19:58> - Disposition Diagnosis: Left humeral fracture, Fracture, humerus, proximal Disposition: AGAINST MEDICAL ADVICE Patient Problems: Current Active Problems Problem Status Onset Left humeral fracture Acute Condition: STABLE
[2018-05-30 14:29] VITALS: RESP 16
[2018-05-30] MEDS ORDERED: Morphine 2 mg/ml ISec IVP STA (14:59)
--- NOTE | 2018-05-30 18:51 | RAD ---
PROCEDURE: Radiographs of the Left Shoulder HISTORY: L shoulder trauma, possible dislocation COMPARISON: Chest x-ray performed 11/16/16 and 11/02/16 FINDINGS: Three views BONES: Comminuted impacted fracture of the humeral head. The distal clavicle and underlying ribs appear intact. JOINTS: Limited evaluation of the humeral head in relation to the glenoid appears grossly located. SOFT TISSUES: Soft tissue swelling. No evidence of retained radiopaque foreign body. Limited visualization of the chest demonstrates AICD pacer in the left chest. Left basilar atelectasis/infiltrate. Partially imaged compression fracture deformities involving the mid to lower thoracic spine. IMPRESSION: Soft tissue swelling. Comminuted impacted fracture of the humeral head. Limited visualization of the humeral head in relation to the glenoid which appears grossly located. If clinical concern for dislocation, further evaluation may be considered with CT. Limited visualization of the chest demonstrates AICD pacer in the left chest. Left basilar atelectasis/infiltrate. Partially imaged compression fraction deformities involving the mid to lower thoracic spine partially included on a single view.
[2018-05-30 19:36] VITALS: BP 125/67; PULSE 86; TEMP 98.7; O2SAT 96
--- NOTE | 2018-05-30 20:46 | HP ---
DATE OF EXAM: 05/30/2018 HISTORY OF PRESENT ILLNESS: The patient is 82-year-old, patient of Dr. Joshi, who was brought to the emergency room after she fell and sustained injury to the left upper extremity and came to the emergency room for further evaluation. The patient states she did not lose consciousness; however, she tripped and hit her left side to the wall and had excruciating pain. Denies any headache. No dizziness. PAST MEDICAL HISTORY: Significant for: 1. Cardiomyopathy with poor ejection fraction. 2. Status post defibrillator placement. 3. Hypotension. 4. History of osteoporosis. 5. History of congestive heart failure. 6. History of kyphoplasty. ALLERGIES: SHE IS ALLERGIC TO VITAMIN D. MEDICATIONS AT HOME: She is on Aldactone 25 daily, omeprazole 20 mg daily, losartan 25 twice a day, Lasix 40 mg twice a day, digoxin 0.125 daily, Coreg 3.125 twice a day, aspirin 81 daily, amiodarone 200 daily. SOCIAL HISTORY: She lives alone. Sister is around. Denies smoking, drinking, alcohol use. REVIEW OF SYSTEMS: Significant for pain in the left arm. PHYSICAL EXAMINATION GENERAL: She is awake, alert, oriented, communicative. VITAL SIGNS: She is afebrile, pulse 80, respirations 16, blood pressure 90/55. LUNGS: Bilateral fair airflow. No rhonchi or crackle. HEART: S1 and S2 audible. ABDOMEN: Soft, nontender. No rebound. No guarding. NEUROLOGICAL: The patient is awake, alert, oriented, able to communicate. ASSESSMENT: 1. Status post fall. 2. Left humeral impacted fracture. 3. Cardiomyopathy. 4. Generalized osteoarthritis. 5. Osteoporosis. PLAN: The patient will be admitted and Dr. Conti to evaluate the patient, give her analgesic. The patient is unable to take care of herself at home, cannot be discharged. We are awaiting Dr. Conti's evaluation. Mayra Pal MD
[2018-05-31] MEDS ORDERED: Pantoprazole 40 mg EC Tab PO SCH (06:30)
[2018-05-31] MEDS ORDERED: AMIODARONE HYDROCHLORIDE PO SCH (10:00)
--- NOTE | 2018-05-31 10:19 | RAD ---
PROCEDURE: Radiographs of the left humerus. HISTORY: fracture COMPARISON: May 30, 2018. FINDINGS: BONES: Impacted, comminuted fracture at the junction of the humeral neck and head. SOFT TISSUES: Normal. OTHER FINDINGS: Preservation of glenohumeral relationship. IMPRESSION: Acute, comminuted fracture proximal left humerus.
--- NOTE | 2018-05-31 12:35 | CARD ---
APPROVED REPORT Date of service: 05/30/2018 EKG Measurement Heart [id number] 192P [id number] <Conclusion> AV sequential or dual chamber electronic pacemaker
[2018-05-31] MEDS ORDERED: Digoxin 125 mcg (0.125 mg) Tab PO SCH (14:00)
== END 2018-05-30 20:15 | disposition left against medical advice (07) ==
LOC: ED 14:06 → ERH 17:46 → UNDOADMIN 17:46 → ERH 19:15 → ED 20:15
DX: S42.202A Unspecified fracture of upper end of left humerus, initial encounter for closed fracture (principal); W01.0XXA Fall on same level from slipping, tripping and stumbling without subsequent striking against object, initial encounter
CPT/HCPCS: 73030; 73060; 93005; 96374; 96375; 99285; J2270; J2405